=== PATIENT | male | born 1965 | race Caucasian/White ===

== ENCOUNTER 2019-07-04 12:45 | Inpatient (IN) | payer OTHER ==
--- NOTE | 2019-07-04 12:55 | EDM.PDOC ---
ED HPI GENERAL MEDICAL PROBLEM - General Chief Complaint: Lower Extremity Injury/Pain Stated Complaint: FALL Time Seen by Provider: 07/04/19 12:45 Source of Information: Reports: Patient, EMS History Limitations: Reports: No Limitations - History of Present Illness INITIAL COMMENTS - FREE TEXT/NARRATIVE: This 54 year old male fell on ice while working a few minutes ago. He complains of pain in his right lateral mid thigh. He denies any other problems. He has received a total of 100 micrograms of Fentanyl IV. He will be having x-rays of his right hip, right thigh and right tib-fib. Onset: Sudden Duration: Minutes: Location: Reports: Lower Extremity, Right Quality: Reports: Sharp, Throbbing Severity: Moderate Improves with: Reports: Medication Worsens with: Reports: Movement Right femur Pain Score (Numeric/FACES): 7 - Related Data Allergies Allergy/AdvReac Type Severity Reaction Status Date / Time No Known Allergies Allergy Verified 07/04/19 12:47 Home Meds: Home Meds . [No Known Home Meds] 07/04/19 [History] Review of Systems - Review of Systems Review Of Systems: See Below Constitutional: Reports: No Symptoms Eyes: Reports: No Symptoms Ears: Reports: No Symptoms Nose: Reports: No Symptoms Mouth/Throat: Reports: No Symptoms Respiratory: Reports: No Symptoms Cardiovascular: Reports: No Symptoms GI/Abdominal: Reports: No Symptoms Genitourinary: Reports: No Symptoms Musculoskeletal: Reports: Other (pain in right mid thigh.) Skin: Reports: No Symptoms Neurological: Reports: No Symptoms Psychiatric: Reports: No Symptoms ED EXAM, GENERAL - Physical Exam Exam: See Below Exam Limited By: No Limitations General Appearance: Alert, WD/WN, Moderate Distress (complaining of right thigh pain) Eye Exam: Bilateral Eye: EOMI, Normal Inspection, PERRL Ears: Normal External Exam, Normal Canal, Hearing Grossly Normal, Normal TMs Ear Exam: Bilateral Ear: Auricle Normal, Canal Normal, TM normal Nose: Normal Inspection, Normal Mucosa, No Blood Throat/Mouth: Normal Inspection, Normal Lips, Normal Teeth, Normal Gums, Normal Oropharynx, Normal Voice, No Airway Compromise Head: Atraumatic, Normocephalic Neck: Normal Inspection, Supple, Non-Tender, Full Range of Motion Respiratory/Chest: No Respiratory Distress, Lungs Clear, Normal Breath Sounds, No Accessory Muscle Use, Chest Non-Tender Cardiovascular: Normal Peripheral Pulses, Regular Rate, Rhythm, No Edema, No Gallop, No JVD, No Murmur, No Rub Peripheral Pulses: 3+: Posterior Tibial (L), Posterior Tibial (R), Dorsalis Pedis (L), 4+: Femoral (L), Femoral (R), Dorsalis Pedis (R) GI/Abdominal: Normal Bowel Sounds, Soft, Non-Tender, No Organomegaly, No Distention, No Abnormal Bruit, No Mass Back Exam: Normal Inspection, Full Range of Motion, NT Extremities: Other (Swelling with tenderness over lateral aspects of right mid thigh. Increase pain with movement. Neuro/Vasc intact.) Neurological: Alert, Oriented, CN II-XII Intact, Normal Cognition, Normal Gait, Normal Reflexes, No Motor/Sensory Deficits Skin Exam: Warm, Dry, Intact, Normal Color, No Rash Lymphatic: No Adenopathy Course - Vital Signs Text/Narrative:: Dr. Sandoval is here to see the patient at approximately 3:28PM. He will be admitted for open reduction with fixation for the fracture femur. The patient agrees with the plan of management. Last Recorded V/S: Last Vital Signs Temp 97.3 F 07/04/19 12:48 Pulse 40 L 07/04/19 14:54 Resp 18 07/04/19 12:48 BP 99/33 L 07/04/19 14:54 Pulse Ox 99 07/04/19 14:54 - Orders/Labs/Meds Orders: Active Orders 24 hr Category Date Time Status Admission Status [Patient Status] [ADT] Stat ADT 07/04/19 15:35 Active Tibia Fibula Rt [CR] Stat Exams 07/04/19 13:03 Ordered Labs: Laboratory Tests 07/04/19 07/04/19 Range/Units 13:15 13:15 WBC 12.21 H (4.0-11.0) K/uL RBC 4.79 (4.50-5.90) M/uL Hgb 14.9 (13.0-17.0) g/dL Hct 41.2 (38.0-50.0) % MCV 86.0 (80.0-98.0) fL MCH 31.1 (27.0-32.0) pg MCHC 36.2 (31.0-37.0) g/dL RDW Std Deviation 38.8 (28.0-62.0) fl RDW Coeff of Bentley 13 (11.0-15.0) % Plt Count 240 (150-400) K/uL MPV 9.90 (7.40-12.00) fL Neut % (Auto) 85.0 H (48.0-80.0) % Lymph % (Auto) 7.9 L (16.0-40.0) % [place] % (Auto) 6.2 (0.0-15.0) % Eos % (Auto) 0.7 (0.0-7.0) % Baso % (Auto) 0.2 (0.0-1.5) % Neut # (Auto) 10.4 H (1.4-5.7) K/uL Lymph # (Auto) 1.0 (0.6-2.4) K/uL [place] # (Auto) 0.8 (0.0-0.8) K/uL Eos # (Auto) 0.1 (0.0-0.7) K/uL Baso # (Auto) 0.0 (0.0-0.1) K/uL Sodium 142 (136-148) mmol/L Potassium 3.9 (3.5-5.1) mmol/L Chloride 105 (98-107) mmol/L Carbon Dioxide 29.8 (21.0-32.0) mmol/L BUN 14 (7.0-18.0) mg/dL Creatinine 1.0 (0.8-1.3) mg/dL Est Cr Clr Drug Dosing 103.28 mL/min Estimated GFR (MDRD) > 60.0 ml/min Glucose 99 (74-106) mg/dL Calcium 8.8 (8.5-10.1) mg/dL Total Bilirubin 0.6 (0.2-1.0) mg/dL AST 18 (15-37) IU/L ALT 32 (14-63) IU/L Alkaline Phosphatase 84 (46-116) U/L Total Protein 6.8 (6.4-8.2) g/dL Albumin 4.0 (3.4-5.0) g/dL Globulin 2.8 (2.6-4.0) g/dL Albumin/Globulin Ratio 1.4 (0.9-1.6) Meds: Medications Discontinued Medications Generic Name Dose Route Start Last Admin Trade Name Toño PRN Reason Stop Dose Admin Fentanyl 75 mcg 07/04/19 14:12 07/04/19 14:23 Fentanyl IVPUSH 07/04/19 14:13 75 mcg ONETIME ONE Administration Fentanyl Confirm 07/04/19 14:16 07/04/19 14:23 Sublimaze Administered 07/04/19 14:17 Not Given Dose 100 mcg .ROUTE .STK-MED ONE Departure - Departure Time of Disposition: 15:40 Disposition: Admitted As Inpatient 68 Condition: Good Clinical Impression: Fracture of femur, right, closed Qualifiers: Encounter type: initial encounter Femur location: shaft Fracture morphology: oblique Fracture alignment: displaced Qualified Code(s): S72.331A - Displaced oblique fracture of shaft of right femur, initial encounter for closed fracture - Discharge Information *PRESCRIPTION DRUG MONITORING PROGRAM REVIEWED*: Yes *COPY OF PRESCRIPTION DRUG MONITORING REPORT IN PATIENT BONG: Yes Sepsis Event Note - Focused Exam Vital Signs: Vital Signs Temp Pulse Resp BP Pulse Ox 07/04/19 14:54 40 L 99/33 L 99 07/04/19 12:48 97.3 F 54 L 18 112/48 L 97 Date Exam was Performed: 07/04/19 Time Exam was Performed: 15:41 - My Orders Last 24 Hours: My Active Orders 07/04/19 13:03 Tibia Fibula Rt [CR] Stat - Assessment/Plan Last 24 Hours: My Active Orders 07/04/19 13:03 Tibia Fibula Rt [CR] Stat
[2019-07-04 13:45] LABS: BLOOD UREA NITROGEN,BUN 14 mg/dL (7.0-18.0); CARBON DIOXIDE,CO2 29.8 mmol/L (21.0-32.0); CHLORIDE,CL 105 mmol/L (98-107); GLUCOSE RANDOM 99 mg/dL (74-106); POTASSIUM,K 3.9 mmol/L (3.5-5.1); SODIUM,NA 142 mmol/L (136-148)
[2019-07-04] MEDS ORDERED: fentaNYL 50 MCG/ML SDV IVPUSH ONE (14:12)
[2019-07-04] MEDS ORDERED: fentaNYL 100 MCG/2 ML SDV ONE (14:16)
--- NOTE | 2019-07-04 15:03 | CR ---
Right femur: AP and lateral views the right femur were obtained. Fracture is identified within the proximal one third diaphysis of the right femur. Displacement is seen on this study by about 1.6 cm. Fracture line extends to involve the base of the lesser trochanter. Right knee prosthesis is noted which appears normal in alignment. No additional abnormality is seen. Impression: 1. Proximal one third diaphyseal right femur fracture showing mild displacement. Fracture line extends to involve the base of the lesser trochanter. 2. Normal alignment of knee prosthesis. Diagnostic code #5 This report was dictated in [place] Standard Time
--- NOTE | 2019-07-04 15:03 | CR ---
Right hip: Single AP view of the right hip was obtained. Proximal femur fracture as described on femur exam is again noted. Joint space of the right hip is maintained. Other portions of the right hemipelvis appears within normal limits as seen on this exam. Impression: 1. Proximal right femur fracture as previously described. 2. AP right hip exam is otherwise unremarkable. Diagnostic code #3 This report was dictated in [place] Standard Time
[2019-07-04] MEDS ORDERED: Lidocaine 2% 5 ML SDV ONE (16:03)
[2019-07-04] MEDS ORDERED: Propofol 200 MG/20 ML SDV ONE (16:03)
[2019-07-04] MEDS ORDERED: fentaNYL 250 MCG/5 ML SDV ONE ×3 (16:03→18:45)
[2019-07-04] MEDS ORDERED: Rocuronium 100 MG/10 ML Syringe ONE (16:03)
[2019-07-04] MEDS ORDERED: Midazolam 1 MG/ML 2 ML SDV ONE (16:03)
[2019-07-04] MEDS ORDERED: Glycopyrrolate 0.2 MG/ML SDV ONE (16:03)
[2019-07-04] MEDS ORDERED: Ondansetron 4 MG/2 ML SDV ONE (16:03)
[2019-07-04] MEDS ORDERED: Ketorolac 30 MG/ML SDV ONE (16:03)
--- NOTE | 2019-07-04 16:10 | PCM.PREANE ---
Preanesthetic Assessment - Anesthesia/Transfusion/Family Hx Anesthesia History: Prior Anesthesia Without Reaction Family History of Anesthesia Reaction: No - Physical Assessment NPO Status Date: 07/04/19 NPO Status Time: 08:00 Vital Signs: Last Vital Signs Temp 36.3 C 07/04/19 12:48 Pulse 54 L 07/04/19 15:55 Resp 16 07/04/19 15:55 BP 96/40 L 07/04/19 15:55 Pulse Ox 99 07/04/19 15:55 Height: 1.91 m Weight: 90.718 kg ASA Class: 1E - Lab Values: Laboratory Last Values WBC 12.21 K/uL (4.0-11.0) H 07/04/19 13:15 RBC 4.79 M/uL (4.50-5.90) 07/04/19 13:15 Hgb 14.9 g/dL (13.0-17.0) 07/04/19 13:15 Hct 41.2 % (38.0-50.0) 07/04/19 13:15 MCV 86.0 fL (80.0-98.0) 07/04/19 13:15 MCH 31.1 pg (27.0-32.0) 07/04/19 13:15 MCHC 36.2 g/dL (31.0-37.0) 07/04/19 13:15 RDW Std Deviation 38.8 fl (28.0-62.0) 07/04/19 13:15 RDW Coeff of Bentley 13 % (11.0-15.0) 07/04/19 13:15 Plt Count 240 K/uL (150-400) 07/04/19 13:15 MPV 9.90 fL (7.40-12.00) 07/04/19 13:15 Neut % (Auto) 85.0 % (48.0-80.0) H 07/04/19 13:15 Lymph % (Auto) 7.9 % (16.0-40.0) L 07/04/19 13:15 [place] % (Auto) 6.2 % (0.0-15.0) 07/04/19 13:15 Eos % (Auto) 0.7 % (0.0-7.0) 07/04/19 13:15 Baso % (Auto) 0.2 % (0.0-1.5) 07/04/19 13:15 Neut # (Auto) 10.4 K/uL (1.4-5.7) H 07/04/19 13:15 Lymph # (Auto) 1.0 K/uL (0.6-2.4) 07/04/19 13:15 [place] # (Auto) 0.8 K/uL (0.0-0.8) 07/04/19 13:15 Eos # (Auto) 0.1 K/uL (0.0-0.7) 07/04/19 13:15 Baso # (Auto) 0.0 K/uL (0.0-0.1) 07/04/19 13:15 Sodium 142 mmol/L (136-148) 07/04/19 13:15 Potassium 3.9 mmol/L (3.5-5.1) 07/04/19 13:15 Chloride 105 mmol/L (98-107) 07/04/19 13:15 Carbon Dioxide 29.8 mmol/L (21.0-32.0) 07/04/19 13:15 BUN 14 mg/dL (7.0-18.0) 07/04/19 13:15 Creatinine 1.0 mg/dL (0.8-1.3) 07/04/19 13:15 Est Cr Clr Drug Dosing 103.28 mL/min 07/04/19 13:15 Estimated GFR (MDRD) > 60.0 ml/min 07/04/19 13:15 Glucose 99 mg/dL (74-106) 07/04/19 13:15 Calcium 8.8 mg/dL (8.5-10.1) 07/04/19 13:15 Total Bilirubin 0.6 mg/dL (0.2-1.0) 07/04/19 13:15 AST 18 IU/L (15-37) 07/04/19 13:15 ALT 32 IU/L (14-63) 07/04/19 13:15 Alkaline Phosphatase 84 U/L (46-116) 07/04/19 13:15 Total Protein 6.8 g/dL (6.4-8.2) 07/04/19 13:15 Albumin 4.0 g/dL (3.4-5.0) 07/04/19 13:15 Globulin 2.8 g/dL (2.6-4.0) 07/04/19 13:15 Albumin/Globulin Ratio 1.4 (0.9-1.6) 07/04/19 13:15 - Allergies Allergies/Adverse Reactions: Allergies Allergy/AdvReac Type Severity Reaction Status Date / Time No Known Allergies Allergy Verified 07/04/19 12:47 - Acknowledgements Anesthesia Type Planned: General Anesthesia Pt an Appropriate Candidate for the Planned Anesthesia: Yes Alternatives and Risks of Anesthesia Discussed w Pt/Guardian: Yes Pt/Guardian Understands and Agrees with Anesthesia Plan: Yes PreAnesthesia Questionnaire - Past Health History Medical/Surgical History: Denies Medical/Surgical History - Infectious Disease History Infectious Disease History: Reports: None - Past Surgical History Musculoskeletal Surgical History: Reports: Knee Replacement - SUBSTANCE USE Tobacco Use Within Last Twelve Months: Snuff/Dip Recreational Drug Use History: No - HOME MEDS Home Medications: Home Meds . [No Known Home Meds] 07/04/19 [History] - CURRENT (IN HOUSE) MEDS Current Meds: Current Medications Discontinued Medications Fentanyl (Fentanyl) 75 mcg IVPUSH ONETIME ONE Stop: 07/04/19 14:13 Last Admin: 07/04/19 14:23 Dose: 75 mcg Fentanyl (Sublimaze) Confirm Administered Dose 100 mcg .ROUTE .STK-MED ONE Stop: 07/04/19 14:17 Last Admin: 07/04/19 14:23 Dose: Not Given Fentanyl (Sublimaze) Confirm Administered Dose 250 mcg .ROUTE .STK-MED ONE Stop: 07/04/19 16:04 Glycopyrrolate (Robinul) Confirm Administered Dose 0.2 mg .ROUTE .STK-MED ONE Stop: 07/04/19 16:04 Ketorolac Tromethamine (Toradol) Confirm Administered Dose 30 mg .ROUTE .STK- MED ONE Stop: 07/04/19 16:04 Lidocaine (Xylocaine-Mpf 2%) Confirm Administered Dose 5 ml .ROUTE .STK-MED ONE Stop: 07/04/19 16:04 Midazolam HCl (Versed 1 Mg/Ml) Confirm Administered Dose 2 mg .ROUTE .STK-MED ONE Stop: 07/04/19 16:04 Ondansetron HCl (Zofran) Confirm Administered Dose 4 mg .ROUTE .STK-MED ONE Stop: 07/04/19 16:04 Propofol (Diprivan 20 Ml) Confirm Administered Dose 200 mg .ROUTE .STK-MED ONE Stop: 07/04/19 16:04 Rocuronium [place] (Zemuron) Confirm Administered Dose 100 mg .ROUTE .STK-MED ONE Stop: 07/04/19 16:04
[2019-07-04] MEDS ORDERED: Sugammadex Sodium 200 MG/2 ML VIAL ONE (16:12)
[2019-07-04] MEDS ORDERED: ceFAZolin 1 GM Vial ONE (16:19)
[2019-07-04] MEDS ORDERED: Sodium Chloride 0.9% 20 ML ONE (16:19)
[2019-07-04] MEDS ORDERED: Phenylephrine/Normal Saline 100 MCG/ML 10 ML Syringe ONE (17:45)
[2019-07-04] MEDS ORDERED: Phenylephrine 1% 10 MG/ML SDV ONE (18:34)
[2019-07-04] MEDS ORDERED: Bupivacaine 0.25% 10 ML SDV ONE (20:10)
[2019-07-04] MEDS ORDERED: diphenhydrAMINE 50 MG/ML SDV IVPUSH PRN (20:33)
[2019-07-04] MEDS ORDERED: Ondansetron 4 MG/2 ML SDV IVPUSH PRN (20:33)
[2019-07-04] MEDS ORDERED: HYDROmorphone 2 MG/ML Syringe IVPUSH PRN (20:39)
--- NOTE | 2019-07-04 20:39 | PCM.OPNOTE ---
- General Post-Op/Procedure Note Date of Surgery/Procedure: 07/04/19 Operative Procedure(s): cephallomedullary nail right femur Pre Op Diagnosis: right subtroch fx closed Post-Op Diagnosis: Same Anesthesia Technique: General ET Tube Primary Surgeon: Bull Sandoval Anesthesia Provider: Rd Putnam EBL in mLs: 2,200 Complications: None Condition: Stable
[2019-07-04] MEDS ORDERED: HYDROmorphone 2 MG/ML Syringe IVPUSH ONE (20:40)
[2019-07-04] MEDS: fentaNYL 100 MCG/2 ML SDV IVPUSH PRN ×2 (20:45→20:52)
--- NOTE | 2019-07-04 21:22 | PCM.POSTAN ---
POST ANESTHESIA ASSESSMENT - VITAL SIGNS Vital Signs: Last Vital Signs Temp 36.3 C 07/04/19 12:48 Pulse 54 L 07/04/19 15:55 Resp 16 07/04/19 15:55 BP 96/40 L 07/04/19 15:55 Pulse Ox 99 07/04/19 15:55
--- NOTE | 2019-07-04 21:25 | PCM.POSTAN ---
POST ANESTHESIA ASSESSMENT - MENTAL STATUS Mental Status: Alert - VITAL SIGNS Vital Signs: Last Vital Signs Temp 36.3 C 07/04/19 12:48 Pulse 54 L 07/04/19 15:55 Resp 16 07/04/19 15:55 BP 96/40 L 07/04/19 15:55 Pulse Ox 99 07/04/19 15:55 - RESPIRATORY Respiratory Status: Respiratory Rate WNL - CARDIOVASCULAR CV Status: Pulse Rate WNL - GASTROINTESTINAL GI Status: No Symptoms - POST OP HYDRATION Hydration Status: Adequate & Stable
[2019-07-04] MEDS: Lactated Ringers 1,000 ML IV SCH (22:05)
--- NOTE | 2019-07-04 22:13 | OR ---
SURGEON: Bull Sandoval DATE OF PROCEDURE: 07/04/2019 PREOPERATIVE DIAGNOSIS: Right subtrochanteric fracture of the femur, closed. POSTOPERATIVE DIAGNOSIS: Right subtrochanteric fracture of the femur, closed. PROCEDURE: Right femur cephalomedullary nail. PRIMARY SURGEON: Bull Sandoval DO. ANESTHESIA: General endotracheal intubation. PYTHON JAVA DEVELOPER: Rd Polanco CRNA. FLUID: Lactated Ringer's solution. ESTIMATED BLOOD LOSS: 2200 mL. COMPLICATIONS: None. SPECIMENS: None. DISCHARGE DISPOSITION: Stable to PACU. INSTRUMENTATION: [place] 10 x 400 trochanteric nail with 100 mm x 10 mm nail into the femoral head and 5 x 50 mm distal locking screw. HISTORY AND INDICATIONS FOR THE PROCEDURE: The patient came in through the ER. He is an multiple coil winder. He slipped on the ice, resulting in a spiral fracture of the subtrochanteric region of the right femur. This lesser trochanter was off. Preoperative imaging confirmed the above-mentioned diagnosis. Risks and goals of the procedure were explained to the patient. Informed consent was obtained. DETAILS OF PROCEDURE: The patient was seen preoperatively by myself and the Anesthesia staff in the preoperative holding area where the operative site was marked. He was brought to the operative suite by the Anesthesia staff where general anesthesia was administered. He was placed onto a fracture table. All extremities were found to be well padded. The left lower extremity was placed into a hip sutton. The right lower extremity was placed into a traction boot. The right lower extremity was then prepped and draped in a sterile manner. Time-out was called identifying the correct patient, correct procedure, the correct side and antibiotics had been given within appropriate period of time. A sterilely draped fluoroscopy unit was used for the procedure. An AP view was used to localize the trochanter. An incision was made just proximal to the greater trochanter. An awl was inserted into the greater trochanter down to the level of lesser trochanter. I then inserted my guidewire. As is typical with subtrochanteric fractures, the proximal portion was severely flexed and the distal portion was extended with no apposition. I then made an incision over the fracture site and tried to reduce this. I then tried to clamp this together, but was unable to pass my ball-tip wire. I spent a great deal of time trying to reduce this which accounts for the 2200 mL of blood loss. This took certainly an hour and a half of trying with reduction and traction and internal and external rotation of the leg using the reduction bala intramedullary, and I was finally with a great deal of external rotation letting off some of the traction pushing down the proximal thigh and then pushing it inward as well as cabling part of the fracture to get the wire to go down. What complicated the reduction was that there was another 1 to 2 pieces of bone fragment preventing this from keying in and the spiral portion distally was on the medial aspect of the femur preventing being able to feel like keyed in because of the gluteal attachments to the femur of that area. After passing the wire, things got relatively much easier. I then measured 400 and then we sequentially reamed from 9 to 12 and placed the nail down and then used AP and lateral fluoro as a guide to get a tip-apex distance for the screw of less than 2.5 cm. I then locked this in place and then applied more internal rotation which would be appropriate and let off a little bit more traction and did this under direct fluoro in order to get the leg length as close as possible to the contralateral side into its [place] length. I then used the perfect [place] technique to place my 5 x 50 mm screw. I then took AP and lateral fluoroscopy shots of the proximal and distal portion of the nail. We then copiously irrigated with saline. I did use pulse lavage, Betadine-infused irrigation throughout the case and then at the end did use Betadine-infused irrigation. The long incision over the fracture site was closed primarily at first muscularly with #1 Stratafix. I then used 3 interrupted Ethibond which were #5s to bring my IT band back together and then closed the IT band with 0 Stratafix. I then closed the subcutaneous layer with 0 Stratafix. My nail insertion site was closed with 0 Stratafix . I then closed all of my incisions with lisa and then covered them with Betadine-soaked Adaptic, fluffs, ABDs, and Medipore tape. The patient was then allowed to awaken from general anesthesia and transferred to his bed in stable condition. Distal pulses were 2/4 in the posterior tibialis and dorsalis pedis. Leg lengths were equal. Because of the blood loss, we started a unit of transfusion of red blood cells. He was also given albumin and other fluids during the case, and he will be transferred to the ICU after PACU. [id number] / MODL /[id number]
[2019-07-04] MEDS: Docusate Sodium 100 MG Cap PO SCH (22:14)
[2019-07-04] MEDS: Acetaminophen/oxyCODONE 325-5 MG Tab PO PRN (22:14)
[2019-07-05] MEDS: ceFAZolin 2 GM in Premix Bag 1 BAG IV SCH ×2 (00:48→07:58)
[2019-07-05] MEDS: Acetaminophen/oxyCODONE 325-5 MG Tab PO PRN ×5 (02:23→21:40)
[2019-07-05] MEDS ORDERED: Lactated Ringers 2,000 ML IV SCH (05:30)
[2019-07-05 05:58] LABS: BLOOD UREA NITROGEN,BUN 17 mg/dL (7.0-18.0); CARBON DIOXIDE,CO2 27.7 mmol/L (21.0-32.0); CHLORIDE,CL 106 mmol/L (98-107); GLUCOSE RANDOM 120 mg/dL (74-106); POTASSIUM,K 4.1 mmol/L (3.5-5.1); SODIUM,NA 141 mmol/L (136-148)
--- NOTE | 2019-07-05 08:20 | PCM48HPAN ---
Post Anesthesia Note - EVALUATION WITHIN 48HRS OF ANESTHETIC Vital Signs in Normal Range: Yes Patient Participated in Evaluation: Yes Respiratory Function Stable: Yes Airway Patent: Yes Cardiovascular Function Stable: Yes Hydration Status Stable: Yes Pain Control Satisfactory: Yes Nausea and Vomiting Control Satisfactory: Yes Mental Status Recovered: Yes Vital Signs: Last Vital Signs Temp 37.1 C 07/05/19 07:28 Pulse 88 07/05/19 07:28 Resp 14 07/05/19 07:28 BP 101/47 L 07/05/19 07:28 Pulse Ox 98 07/05/19 07:28
--- NOTE | 2019-07-05 09:31 | PN ---
THC Physician - Brief Progress [id number]/12/2020 09:19[facility] Camilo Sams, [place] - MWN (BREANN) - MWN ICUROLAND TIMIDate of Service 07/05/2019 09:19HPI/Events of N ote eICU Admission [id number] M admitted to ICU post-surgery with Hgb drop 14.9 -> 9.4. Patient had gr ound level fall with right hip fracture. He had significant blood loss during right hip nailing with hypotension. Given 3.6L LR, 2 units prbcs, albumin. Discussed with bedside nurse and reviewed note s in the EMR. Seen on camera, comfortable.eICU Recommendations:1. Check serial H/H, maintain 2 larg e bore peripheral IV at all times.2. Suggest hold Celebrex with bleeding.3. Rule out ACS if remains hypotensive.4. SCDs for DVT prophylaxis.5. Pain control with Dilaudid and Percocet PRN.6. Continu e IVF. Thank you for allowing us to particpate in the care of your patient.Interventions Intermediat e-Bleeding - evaluation and treatment with blood products, Communication with other healthcare provid ers and/or family, Diagnostic test evaluation, Medication change / dose adjustmentElectronically Sign ed by: CHARLY VALLE) on 07/05/2019 09:30
[2019-07-05] MEDS ORDERED: Lactated Ringers 1,000 ML IV ONE (09:56)
[2019-07-05] MEDS: Aspirin 325 MG Tab PO SCH (10:00)
[2019-07-05] MEDS: Celecoxib 100 MG Cap PO SCH (10:00)
[2019-07-05] MEDS: Docusate Sodium 100 MG Cap PO SCH ×2 (10:06→21:13)
--- NOTE | 2019-07-05 10:43 | PCM.CONS ---
H&P History of Present Illness - General Date of Service: 07/05/19 Admit Problem/Dx: Admission Diagnosis/Problem Admission Diagnosis/Problem Fracture of femur - History of Present Illness Initial Comments - Free Text/Narative: Patient is a 54 y/o M with PMH of cardiac murmur, electrocution, who underwent surgery for right subtrochanteric fracture of femur yesterday (07/04/2019). Patient had estimated blood loss of 2200 ml in OR. Was admitted to ICU for close monitoring. I was consulted to help manage the acute blood loss anemia. Patient seen and examined by me at bedside this AM. Looks comfortable. BP little soft with MAPs in 60-65 range. No active bleeding, dressing has been changed once overnight. Overnight i ordered another unit of PRBC and 1 FFP. in Total he has received 2 PRBC and 1 FFP so far and 5-6 ltrs of LR fluid bolus. Pain well tolerated. Eating and drinking ok. Good urine output so far. Quality: Reports: Throbbing Severity: Moderate Improves with: Reports: Cold Therapy Worsens with: Reports: Movement Right femur Pain Score (Numeric/FACES): 5 - Related Data Allergies/Adverse Reactions: Allergies Allergy/AdvReac Type Severity Reaction Status Date / Time No Known Allergies Allergy Verified 07/06/19 18:06 Home Medications: Home Meds . [No Known Home Meds] 07/04/19 [History] Past Medical History - Past Health History Medical/Surgical History: Denies Medical/Surgical History Cardiovascular History: Reports: Heart Murmur - Infectious Disease History Infectious Disease History: Reports: None - Past Surgical History Cardiovascular Surgical History: Reports: None Musculoskeletal Surgical History: Reports: Knee Replacement Social & Family History - Family History Family Medical History: Noncontributory - Tobacco Use Smoking Status *Q: Never Smoker - Caffeine Use Caffeine Use: Reports: Coffee, Energy Drinks, Soda - Recreational Drug Use Recreational Drug Use: No H&P Review of Systems - Review of Systems: Review Of Systems: See Below General: Denies: Fever, Chills HEENT: Denies: Dysphasia, Ear Pain Pulmonary: Denies: Shortness of Breath, Wheezing, Pleuritic Chest Pain Cardiovascular: Denies: Chest Pain, Palpitations, Dyspnea on Exertion Gastrointestinal: Denies: Abdominal Pain, Anorexia, Black Stool, Decreased Appetite, Hematochezia, Nausea Genitourinary: Denies: Dysuria, Frequency, Burning Musculoskeletal: Reports: Leg Pain. Denies: Neck Pain, Shoulder Pain Skin: Denies: Cyanosis, Jaundice, Mottled Psychiatric: Denies: Confusion, Depression, Mood Lability Neurological: Denies: Confusion, Dizziness, Headache Exam - Exam Exam: See Below - Vital Signs Vital Signs: Last Vital Signs Temp 36.8 C 07/05/19 10:31 Pulse 87 07/05/19 10:31 Resp 17 07/05/19 10:31 BP 91/44 L 07/05/19 10:31 Pulse Ox 95 07/05/19 10:31 Weight: 90.12 kg - Exam General: Alert, Oriented, Cooperative Neck: Supple, Trachea Midline Lungs: Clear to Auscultation, Normal Respiratory Effort Cardiovascular: Regular Rate, Regular Rhythm, Systolic Murmur Peripheral Pulses: 3+: Dorsalis Pedis (L), Dorsalis Pedis (R) Skin: Warm, Intact - Patient Data Lab Results Last 24 hrs: Laboratory Results - last 24 hr 07/04/19 07/04/19 07/04/19 Range/Units 13:15 13:15 19:35 WBC 12.21 H (4.0-11.0) K/uL RBC 4.79 (4.50-5.90) M/uL Hgb 14.9 (13.0-17.0) g/dL Hct 41.2 (38.0-50.0) % MCV 86.0 (80.0-98.0) fL MCH 31.1 (27.0-32.0) pg MCHC 36.2 (31.0-37.0) g/dL RDW Std Deviation 38.8 (28.0-62.0) fl RDW Coeff of [place] 13 (11.0-15.0) % Plt Count 240 (150-400) K/uL MPV 9.90 (7.40-12.00) fL Neut % (Auto) 85.0 H (48.0-80.0) % Lymph % (Auto) 7.9 L (16.0-40.0) % [place] % (Auto) 6.2 (0.0-15.0) % Eos % (Auto) 0.7 (0.0-7.0) % Baso % (Auto) 0.2 (0.0-1.5) % Neut # (Auto) 10.4 H (1.4-5.7) K/uL Lymph # (Auto) 1.0 (0.6-2.4) K/uL [place] # (Auto) 0.8 (0.0-0.8) K/uL Eos # (Auto) 0.1 (0.0-0.7) K/uL Baso # (Auto) 0.0 (0.0-0.1) K/uL INR APTT (18.6-31.3) SEC Sodium 142 (136-148) mmol/L Potassium 3.9 (3.5-5.1) mmol/L Chloride 105 (98-107) mmol/L Carbon Dioxide 29.8 (21.0-32.0) mmol/L BUN 14 (7.0-18.0) mg/dL Creatinine 1.0 (0.8-1.3) mg/dL Est Cr Clr Drug Dosing 103.28 mL/min Estimated GFR (MDRD) > 60.0 ml/min Glucose 99 (74-106) mg/dL Calcium 8.8 (8.5-10.1) mg/dL Total Bilirubin 0.6 (0.2-1.0) mg/dL AST 18 (15-37) IU/L ALT 32 (14-63) IU/L Alkaline Phosphatase 84 (46-116) U/L Total Protein 6.8 (6.4-8.2) g/dL Albumin 4.0 (3.4-5.0) g/dL Globulin 2.8 (2.6-4.0) g/dL Albumin/Globulin Ratio 1.4 (0.9-1.6) Blood Type O NEGATIVE Antibody Screen NEGATIVE Crossmatch See Detail 07/05/19 07/05/19 07/05/19 Range/Units 05:35 05:35 06:37 WBC (4.0-11.0) K/uL RBC (4.50-5.90) M/uL Hgb 9.4 L (13.0-17.0) g/dL Hct 26.4 L (38.0-50.0) % MCV (80.0-98.0) fL MCH (27.0-32.0) pg MCHC (31.0-37.0) g/dL RDW Std Deviation (28.0-62.0) fl RDW Coeff of [place] (11.0-15.0) % Plt Count (150-400) K/uL MPV (7.40-12.00) fL Neut % (Auto) (48.0-80.0) % Lymph % (Auto) (16.0-40.0) % [place] % (Auto) (0.0-15.0) % Eos % (Auto) (0.0-7.0) % Baso % (Auto) (0.0-1.5) % Neut # (Auto) (1.4-5.7) K/uL Lymph # (Auto) (0.6-2.4) K/uL [place] # (Auto) (0.0-0.8) K/uL Eos # (Auto) (0.0-0.7) K/uL Baso # (Auto) (0.0-0.1) K/uL INR 1.16 APTT 28.6 (18.6-31.3) SEC Sodium 141 (136-148) mmol/L Potassium 4.1 (3.5-5.1) mmol/L Chloride 106 (98-107) mmol/L Carbon Dioxide 27.7 (21.0-32.0) mmol/L BUN 17 (7.0-18.0) mg/dL Creatinine 1.1 (0.8-1.3) mg/dL Est Cr Clr Drug Dosing 94.39 mL/min Estimated GFR (MDRD) > 60.0 ml/min Glucose 120 H (74-106) mg/dL Calcium 7.2 L (8.5-10.1) mg/dL Total Bilirubin (0.2-1.0) mg/dL AST (15-37) IU/L ALT (14-63) IU/L Alkaline Phosphatase (46-116) U/L Total Protein (6.4-8.2) g/dL Albumin (3.4-5.0) g/dL Globulin (2.6-4.0) g/dL Albumin/Globulin Ratio (0.9-1.6) Blood Type Antibody Screen Crossmatch Result Diagrams: 07/06/19 05:35 07/05/19 05:35 Sepsis Event Note - Evaluation Sepsis Screening Result: No Definite Risk - Focused Exam Vital Signs: Vital Signs Temp Temp Pulse Resp BP BP Pulse Ox 07/05/19 10:31 36.8 C 87 17 91/44 L 95 07/05/19 09:52 37.1 C 85 14 96/51 L 98 07/05/19 09:47 36.9 C 85 12 89/56 L 100 07/05/19 09:32 37.4 C 37.4 C 84 14 92/47 L 97 07/05/19 08:55 37.2 C 85 16 98/47 L 95 07/05/19 08:26 37.0 C 90 13 90/49 L 100 07/05/19 07:25 37.1 C 88 14 101/47 L 98 07/05/19 06:53 37.2 C 15 94/45 L 98 07/05/19 06:38 37.1 C 17 105/46 L 98 07/05/19 05:00 16 85/45 L 94 L 07/05/19 04:00 36.8 C 14 97/39 L 94 L 07/05/19 03:00 16 87/48 L 95 07/05/19 02:00 15 96/48 L 99 07/05/19 01:00 12 89/52 L 100 07/05/19 00:00 36.7 C 14 88/50 L 98 07/04/19 23:30 14 94/51 L 96 07/04/19 23:00 14 99/56 L 96 07/04/19 22:45 12 108/56 L 94 L Date Exam was Performed: 07/06/19 Time Exam was Performed: 21:06 Consult PN Assessment/Plan POD#: 1 (1) Blood loss, postoperative SNOMED Code(s): 026719583 Code(s): KZS2807 - Current Visit: Yes (2) Displaced subtrochanteric fracture of right femur, initial encounter for closed fracture SNOMED Code(s): 971911984, 767673987, 874023467 Code(s): S72.21XA - DISPLACED SUBTROCHANTERIC FRACTURE OF RIGHT FEMUR, INIT Current Visit: Yes Onset Date: ~07/04/19 (3) Benign cardiac murmur SNOMED Code(s): 04429673 Code(s): R01.0 - BENIGN AND INNOCENT CARDIAC MURMURS Current Visit: Yes Problem List Initiated/Reviewed/Updated: Yes My Orders Last 24 Hours: My Active Orders 07/05/19 05:30 Lactated Ringers [Ringers, Lactated] 2,000 ml IV BOLUS 07/05/19 06:05 FRESH FROZEN PLASMA [BBK] Routine 07/05/19 09:56 Lactated Ringers [Ringers, Lactated] 1,000 ml IV ONETIME Plan: A/P: 1)POD 1 for subtrochanteric femur # 2)Blood loss anemia 2)Hypotension Cont IV fluid resuscitation s/p 2PRBC, 1 FFP transfusion BP soft but acceptable for now, patient states his BP is low at baseline with SBP in low 100s. Recheck HnH this afternoon cont pain control per ortho hold ASA for today due to concern of bleeding Cont close monitoring in ICU monitor and replete electrolytes daily Rest of the care per primary team Requesting Provider: Dr Sandoval Date Consult Requested: 07/04/19 Reason for Consult: blood loss anemia Patient History Reviewed: Yes Admission H&P Reviewed: Yes Notified Requestor: Yes
[2019-07-05] MEDS: Lactated Ringers 1,000 ML IV SCH ×2 (11:14→21:05)
--- NOTE | 2019-07-05 11:50 | PCM.OPNOTE ---
- General Post-Op/Procedure Note Date of Surgery/Procedure: 07/05/19 Operative Procedure(s): right femur cephallomedullary nail Pre Op Diagnosis: right femur 3 part subtrochanteric fracture, closed Post-Op Diagnosis: Same Anesthesia Technique: General ET Tube Primary Surgeon: Bull Sandoval Anesthesia Provider: Rd Putnam EBL in mLs: 2,200 Complications: None Condition: Stable Free Text/Narrative:: Intake & Output 07/04/19 07/05/19 07/05/19 22:59 06:59 14:59 Intake Total 3600 513 3332 Output Total 300 Balance 3600 213 3332
--- NOTE | 2019-07-05 11:54 | PCM.PN ---
- General Info Date of Service: 07/05/19 Admission Dx/Problem (Free Text): Admission Diagnosis/Problem Admission Diagnosis/Problem Fracture of femur, subtrochanteric, closed Functional Status: Reports: Pain Controlled, Tolerating Diet, Urinating - Review of Systems General: Reports: No Symptoms HEENT: Reports: No Symptoms Pulmonary: Reports: No Symptoms Cardiovascular: Reports: No Symptoms Gastrointestinal: Reports: No Symptoms Genitourinary: Reports: No Symptoms Musculoskeletal: Reports: Leg Pain, Joint Pain, Joint Swelling Skin: Reports: No Symptoms Neurological: Reports: No Symptoms Psychiatric: Reports: No Symptoms - Patient Data Vitals - Most Recent: Last Vital Signs Temp 37.1 C 07/05/19 11:28 Pulse 91 07/05/19 11:28 Resp 12 07/05/19 11:28 BP 109/52 L 07/05/19 11:28 Pulse Ox 99 07/05/19 11:28 Weight - Most Recent: 90.12 kg I&O - Last 24 Hours: Intake & Output 07/04/19 07/05/19 07/05/19 22:59 06:59 14:59 Intake Total 3600 513 3332 Output Total 300 Balance 3600 213 3332 Lab Results Last 24 Hours: Laboratory Results - last 24 hr 07/04/19 07/04/19 07/04/19 Range/Units 13:15 13:15 19:35 WBC 12.21 H (4.0-11.0) K/uL RBC 4.79 (4.50-5.90) M/uL Hgb 14.9 (13.0-17.0) g/dL Hct 41.2 (38.0-50.0) % MCV 86.0 (80.0-98.0) fL MCH 31.1 (27.0-32.0) pg MCHC 36.2 (31.0-37.0) g/dL RDW Std Deviation 38.8 (28.0-62.0) fl RDW Coeff of [place] 13 (11.0-15.0) % Plt Count 240 (150-400) K/uL MPV 9.90 (7.40-12.00) fL Neut % (Auto) 85.0 H (48.0-80.0) % Lymph % (Auto) 7.9 L (16.0-40.0) % [place] % (Auto) 6.2 (0.0-15.0) % Eos % (Auto) 0.7 (0.0-7.0) % Baso % (Auto) 0.2 (0.0-1.5) % Neut # (Auto) 10.4 H (1.4-5.7) K/uL Lymph # (Auto) 1.0 (0.6-2.4) K/uL [place] # (Auto) 0.8 (0.0-0.8) K/uL Eos # (Auto) 0.1 (0.0-0.7) K/uL Baso # (Auto) 0.0 (0.0-0.1) K/uL INR APTT (18.6-31.3) SEC Sodium 142 (136-148) mmol/L Potassium 3.9 (3.5-5.1) mmol/L Chloride 105 (98-107) mmol/L Carbon Dioxide 29.8 (21.0-32.0) mmol/L BUN 14 (7.0-18.0) mg/dL Creatinine 1.0 (0.8-1.3) mg/dL Est Cr Clr Drug Dosing 103.28 mL/min Estimated GFR (MDRD) > 60.0 ml/min Glucose 99 (74-106) mg/dL Calcium 8.8 (8.5-10.1) mg/dL Total Bilirubin 0.6 (0.2-1.0) mg/dL AST 18 (15-37) IU/L ALT 32 (14-63) IU/L Alkaline Phosphatase 84 (46-116) U/L Total Protein 6.8 (6.4-8.2) g/dL Albumin 4.0 (3.4-5.0) g/dL Globulin 2.8 (2.6-4.0) g/dL Albumin/Globulin Ratio 1.4 (0.9-1.6) Blood Type O NEGATIVE Antibody Screen NEGATIVE Crossmatch See Detail 07/05/19 07/05/19 07/05/19 Range/Units 05:35 05:35 06:37 WBC (4.0-11.0) K/uL RBC (4.50-5.90) M/uL Hgb 9.4 L (13.0-17.0) g/dL Hct 26.4 L (38.0-50.0) % MCV (80.0-98.0) fL MCH (27.0-32.0) pg MCHC (31.0-37.0) g/dL RDW Std Deviation (28.0-62.0) fl RDW Coeff of [place] (11.0-15.0) % Plt Count (150-400) K/uL MPV (7.40-12.00) fL Neut % (Auto) (48.0-80.0) % Lymph % (Auto) (16.0-40.0) % [place] % (Auto) (0.0-15.0) % Eos % (Auto) (0.0-7.0) % Baso % (Auto) (0.0-1.5) % Neut # (Auto) (1.4-5.7) K/uL Lymph # (Auto) (0.6-2.4) K/uL [place] # (Auto) (0.0-0.8) K/uL Eos # (Auto) (0.0-0.7) K/uL Baso # (Auto) (0.0-0.1) K/uL INR 1.16 APTT 28.6 (18.6-31.3) SEC Sodium 141 (136-148) mmol/L Potassium 4.1 (3.5-5.1) mmol/L Chloride 106 (98-107) mmol/L Carbon Dioxide 27.7 (21.0-32.0) mmol/L BUN 17 (7.0-18.0) mg/dL Creatinine 1.1 (0.8-1.3) mg/dL Est Cr Clr Drug Dosing 94.39 mL/min Estimated GFR (MDRD) > 60.0 ml/min Glucose 120 H (74-106) mg/dL Calcium 7.2 L (8.5-10.1) mg/dL Total Bilirubin (0.2-1.0) mg/dL AST (15-37) IU/L ALT (14-63) IU/L Alkaline Phosphatase (46-116) U/L Total Protein (6.4-8.2) g/dL Albumin (3.4-5.0) g/dL Globulin (2.6-4.0) g/dL Albumin/Globulin Ratio (0.9-1.6) Blood Type Antibody Screen Crossmatch Med Orders - Current: Current Medications Aspirin (Aspirin) 325 mg PO DAILY [facility] Last Admin: 07/05/19 10:00 Dose: Not Given Celecoxib (Celebrex) 100 mg PO BID [facility] Last Admin: 07/05/19 10:00 Dose: Not Given Diphenhydramine HCl (Benadryl) 25 mg IVPUSH Q4H PRN PRN Reason: Itching Docusate Sodium (Colace) 100 mg PO BID [facility] Last Admin: 07/05/19 10:06 Dose: 100 mg Hydromorphone HCl (Dilaudid) 2 mg IVPUSH Q2H PRN PRN Reason: Pain Lactated Ringer's (Ringers, Lactated) 1,000 mls @ 100 mls/hr IV ASDIRECTED [facility] Last Admin: 07/05/19 11:14 Dose: 100 mls/hr Lactated Ringer's (Ringers, Lactated) 2,000 mls @ 999 mls/hr IV BOLUS [facility] Last Admin: 07/05/19 05:59 Dose: 999 mls/hr Ondansetron HCl (Zofran) 4 mg IVPUSH Q6H PRN PRN Reason: Nausea/Vomiting Oxycodone/Acetaminophen (Percocet 325-5 Mg) 1 - 2 tab PO Q4H PRN PRN Reason: Pain Last Admin: 07/05/19 11:24 Dose: 2 tab Discontinued Medications Bupivacaine HCl (Sensorcaine-Mpf 0.25%) Confirm Administered Dose 30 ml .ROUTE .STK-MED ONE Stop: 07/04/19 20:11 Cefazolin Sodium (Ancef) Confirm Administered Dose 2 gm .ROUTE .STK-MED ONE Stop: 07/04/19 16:20 Fentanyl (Fentanyl) 75 mcg IVPUSH ONETIME ONE Stop: 07/04/19 14:13 Last Admin: 07/04/19 14:23 Dose: 75 mcg Fentanyl (Sublimaze) Confirm Administered Dose 100 mcg .ROUTE .STK-MED ONE Stop: 07/04/19 14:17 Last Admin: 07/04/19 14:23 Dose: Not Given Fentanyl (Sublimaze) Confirm Administered Dose 250 mcg .ROUTE .STK-MED ONE Stop: 07/04/19 16:04 Fentanyl (Sublimaze) 50 mcg IVPUSH Q5M PRN PRN Reason: Pain Last Admin: 07/04/19 20:52 Dose: 50 mcg Fentanyl (Sublimaze) Confirm Administered Dose 250 mcg .ROUTE .STK-MED ONE Stop: 07/04/19 17:39 Fentanyl (Sublimaze) Confirm Administered Dose 250 mcg .ROUTE .STK-MED ONE Stop: 07/04/19 18:46 Glycopyrrolate (Robinul) Confirm Administered Dose 0.2 mg .ROUTE .STK-MED ONE Stop: 07/04/19 16:04 Hydromorphone HCl (Dilaudid) 1 mg IVPUSH ONETIME ONE Stop: 07/04/19 20:41 Last Admin: 07/04/19 20:59 Dose: 1 mg Sodium Chloride (Normal Saline) Confirm Administered Dose 20 mls @ as directed .ROUTE .STK-MED ONE Stop: 07/04/19 16:20 Cefazolin Sodium/Dextrose 2 gm (/ Premix) 50 mls @ 100 mls/hr IV Q8H [facility]Z MARINA Stop: 07/05/19 08:29 Last Admin: 07/05/19 07:58 Dose: 100 mls/hr Lactated Ringer's (Ringers, Lactated) 1,000 mls @ 999 mls/hr IV ONETIME ONE Stop: 07/05/19 10:56 Last Admin: 07/05/19 10:06 Dose: 999 mls/hr Ketorolac Tromethamine (Toradol) Confirm Administered Dose 30 mg .ROUTE .STK- MED ONE Stop: 07/04/19 16:04 Lidocaine (Xylocaine-Mpf 2%) Confirm Administered Dose 5 ml .ROUTE .STK-MED ONE Stop: 07/04/19 16:04 Midazolam HCl (Versed 1 Mg/Ml) Confirm Administered Dose 2 mg .ROUTE .STK-MED ONE Stop: 07/04/19 16:04 Ondansetron HCl (Zofran) Confirm Administered Dose 4 mg .ROUTE .STK-MED ONE Stop: 07/04/19 16:04 Phenylephrine HCl (Phenylephrine In Ns 100 Mcg/Ml) Confirm Administered Dose 1 mg .ROUTE .STK-MED ONE Stop: 07/04/19 17:46 Phenylephrine HCl (Giancarlo-Synephrine) Confirm Administered Dose 20 mg .ROUTE .STK- MED ONE Stop: 07/04/19 18:35 Propofol (Diprivan 20 Ml) Confirm Administered Dose 200 mg .ROUTE .STK-MED ONE Stop: 07/04/19 16:04 Rocuronium [place] (Zemuron) Confirm Administered Dose 100 mg .ROUTE .STK-MED ONE Stop: 07/04/19 16:04 Sugammadex Sodium ([place]) Confirm Administered Dose 200 mg .ROUTE .STK-MED ONE Stop: 07/04/19 16:13 - Exam General: Alert, Oriented, Cooperative, No Acute Distress HEENT: Pupils Equal, Pupils Reactive, EOMI, Mucous Membr. Moist/[place] Neck: Supple, Trachea Midline Lungs: Normal Respiratory Effort GI/Abdominal Exam: No Distention Extremities: Leg Pain, Limited Range of Motion Peripheral Pulses: 2+: Posterior Tibial (L), Posterior Tibial (R), Dorsalis Pedis (L), Dorsalis Pedis (R) Skin: Warm, Dry, Intact Wound/Incisions: Healing Well, Drainage Neurological: No New Focal Deficit Psy/Mental Status: Alert, Normal Affect, Normal Mood Sepsis Event Note - Evaluation Sepsis Screening Result: No Definite Risk - Focused Exam Vital Signs: Vital Signs Temp Temp Pulse Resp BP BP Pulse Ox 07/05/19 11:28 37.1 C 91 12 109/52 L 99 07/05/19 10:31 36.8 C 36.8 C 87 17 91/44 L 95 07/05/19 09:52 37.1 C 37.1 C 85 14 96/51 L 98 07/05/19 09:47 36.9 C 36.9 C 85 12 89/56 L 89/56 L 100 07/05/19 09:32 37.4 C 37.4 C 84 14 92/47 L 97 07/05/19 08:55 37.2 C 85 16 98/47 L 95 07/05/19 08:26 37.0 C 90 13 90/49 L 100 07/05/19 07:25 37.1 C 88 14 101/47 L 98 07/05/19 06:53 37.2 C 15 94/45 L 98 07/05/19 06:38 37.1 C 17 105/46 L 98 07/05/19 05:00 16 85/45 L 94 L 07/05/19 04:00 36.8 C 14 97/39 L 94 L 07/05/19 03:00 16 87/48 L 95 07/05/19 02:00 15 96/48 L 99 07/05/19 01:00 12 89/52 L 100 07/05/19 00:00 36.7 C 14 88/50 L 98 Date Exam was Performed: 07/05/19 Time Exam was Performed: 11:51 - Problem List & Annotations (1) Displaced subtrochanteric fracture of right femur, initial encounter for closed fracture SNOMED Code(s): 530380708, 932740056, 114543397 Code(s): S72.21XA - DISPLACED SUBTROCHANTERIC FRACTURE OF RIGHT FEMUR, INIT Status: Acute Current Visit: Yes Onset Date: ~07/04/19 - Problem List Review Problem List Initiated/Reviewed/Updated: Yes - My Orders Last 24 Hours: My Active Orders 07/04/19 15:35 Admission Status [Patient Status] [ADT] Stat 07/04/19 15:45 OR Fluoro-NC [CR] Routine 07/04/19 20:33 Neurovascular Check [RC] BID OT Evaluation and Treatment [CONS] Routine Acetaminophen/oxyCODONE [Percocet 325-5 MG] 1 - 2 tab PO Q4H PRN Ondansetron [Zofran] 4 mg IVPUSH Q6H PRN diphenhydrAMINE [Benadryl] 25 mg IVPUSH Q4H PRN Ice Therapy [OM.PC] Routine Code Status [Resuscitation Status] Routine 07/04/19 20:34 Cooling Warming Measures [RC] ASDIRECTED RT Incentive Spirometry [RC] Q2HWA Wound Care [RC] DAILY PT Evaluation and Treatment [CONS] Routine Sequential Compression Device [OM.PC] Routine 07/04/19 20:37 Antiembolic Devices [RC] PER UNIT ROUTINE 07/04/19 20:39 HYDROmorphone [Dilaudid] 2 mg IVPUSH Q2H PRN 07/04/19 20:45 Lactated Ringers [Ringers, Lactated] 1,000 ml IV ASDIRECTED 07/04/19 20:59 Consult to Physician [CONS] Routine 07/04/19 21:00 Docusate Sodium [Colace] 100 mg PO BID 07/04/19 21:01 Notify Provider Consults [RC] ASDIRECTED 07/04/19 21:05 Patient Status Manage Transfer [TRANSFER] Routine 07/05/19 09:00 Aspirin 325 mg PO DAILY Celecoxib [CeleBREX] 100 mg PO BID 07/06/19 06:00 HEMOGLOBIN/HEMATOCRIT,HH [HEME] DAILY - Plan Plan:: hold asa, celebrex today wait for pressure to stabilize to move out of ice to ms when medicine approves pt/ot tomorrow up to chair today pain control scds
[2019-07-06] MEDS: Acetaminophen/oxyCODONE 325-5 MG Tab PO PRN ×5 (05:41→23:21)
[2019-07-06] MEDS: Lactated Ringers 1,000 ML IV SCH (07:01)
--- NOTE | 2019-07-06 09:00 | PCM.CONSN ---
<Milena Henriquez - Last Filed: 07/06/19 12:15> - General Info Date of Service: 07/06/19 Subjective Update: The patient is a 54 year old male who is post op day 2 from femur fracture. Medicine consulted due to intra-operative bleeding requiring transfusion and hypotension. Overall patient received 3 units PRBC and 1 FFP and hemoglobin has stabilized and BP improved. Nursing reports that no bleeding from incision this morning. Patient reports pain under control, denies chest pain, shortness of breath, or abdominal pain. Eating, drinking and going to the bathroom without issue. - Review of Systems General: Reports: No Symptoms HEENT: Reports: No Symptoms Pulmonary: Reports: No Symptoms Cardiovascular: Reports: No Symptoms Gastrointestinal: Reports: No Symptoms Genitourinary: Reports: No Symptoms Musculoskeletal: Reports: Leg Pain Skin: Reports: No Symptoms Neurological: Reports: No Symptoms Psychiatric: Reports: No Symptoms - Patient Data Vitals - Most Recent: Last Vital Signs Temp 98.5 F 07/06/19 08:00 Pulse 88 07/05/19 17:03 Resp 16 07/06/19 08:00 BP 113/54 L 07/06/19 08:00 Pulse Ox 96 07/06/19 08:00 Weight - Most Recent: 93.639 kg I&O - Last 24 Hours: Intake & Output 07/05/19 07/06/19 07/06/19 22:59 06:59 14:59 Intake Total 1360 2020 Output Total 3345 1950 Balance -1984 Lab Results Last 24 Hours: Laboratory Results - last 24 hr 07/04/19 07/05/19 07/06/19 Range/Units 19:35 15:05 05:35 WBC 10.86 (4.0-11.0) K/uL RBC 3.15 L (4.50-5.90) M/uL Hgb 9.1 L 9.5 L (13.0-17.0) g/dL Hct 25.7 L 27.7 L (38.0-50.0) % MCV 87.9 (80.0-98.0) fL MCH 30.2 (27.0-32.0) pg MCHC 34.3 (31.0-37.0) g/dL RDW Std Deviation 43.5 (28.0-62.0) fl RDW Coeff of [place] 14 (11.0-15.0) % Plt Count 158 (150-400) K/uL MPV 10.00 (7.40-12.00) fL Neut % (Auto) 75.6 (48.0-80.0) % Lymph % (Auto) 10.1 L (16.0-40.0) % [place] % (Auto) 10.4 (0.0-15.0) % Eos % (Auto) 3.6 (0.0-7.0) % Baso % (Auto) 0.3 (0.0-1.5) % Neut # (Auto) 8.2 H (1.4-5.7) K/uL Lymph # (Auto) 1.1 (0.6-2.4) K/uL [place] # (Auto) 1.1 H (0.0-0.8) K/uL Eos # (Auto) 0.4 (0.0-0.7) K/uL Baso # (Auto) 0.0 (0.0-0.1) K/uL Nucleated RBC % 0.0 /100WBC Nucleated RBCs # 0 K/uL Blood Type O NEGATIVE Antibody Screen NEGATIVE Crossmatch See Detail Med Orders - Current: Current Medications Aspirin (Aspirin) 325 mg PO DAILY [facility] Last Admin: 07/05/19 10:00 Dose: Not Given Celecoxib (Celebrex) 100 mg PO BID [facility] Last Admin: 07/05/19 10:00 Dose: Not Given Cyclobenzaprine HCl (Flexeril) 10 mg PO TID PRN PRN Reason: muscle spasms Diazepam (Valium) 2 mg IVPUSH Q4H PRN PRN Reason: uncontrolled spasms Diphenhydramine HCl (Benadryl) 25 mg IVPUSH Q4H PRN PRN Reason: Itching Docusate Sodium (Colace) 100 mg PO BID [facility] Last Admin: 07/05/19 21:13 Dose: 100 mg Hydromorphone HCl (Dilaudid) 2 mg IVPUSH Q2H PRN PRN Reason: Pain Lactated Ringer's (Ringers, Lactated) 1,000 mls @ 100 mls/hr IV ASDIRECTED [facility] Last Admin: 07/06/19 07:01 Dose: 100 mls/hr Lactated Ringer's (Ringers, Lactated) 2,000 mls @ 999 mls/hr IV [facility] Last Admin: 07/05/19 05:59 Dose: 999 mls/hr Ondansetron HCl (Zofran) 4 mg IVPUSH Q6H PRN PRN Reason: Nausea/Vomiting Oxycodone/Acetaminophen (Percocet 325-5 Mg) 1 - 2 tab PO Q4H PRN PRN Reason: Pain Last Admin: 07/06/19 05:41 Dose: 2 tab Discontinued Medications Bupivacaine HCl (Sensorcaine-Mpf 0.25%) Confirm Administered Dose 30 ml .ROUTE .STK-MED ONE Stop: 07/04/19 20:11 Cefazolin Sodium (Ancef) Confirm Administered Dose 2 gm .ROUTE .STK-MED ONE Stop: 07/04/19 16:20 Fentanyl (Fentanyl) 75 mcg IVPUSH ONETIME ONE Stop: 07/04/19 14:13 Last Admin: 07/04/19 14:23 Dose: 75 mcg Fentanyl (Sublimaze) Confirm Administered Dose 100 mcg .ROUTE .STK-MED ONE Stop: 07/04/19 14:17 Last Admin: 07/04/19 14:23 Dose: Not Given Fentanyl (Sublimaze) Confirm Administered Dose 250 mcg .ROUTE .STK-MED ONE Stop: 07/04/19 16:04 Fentanyl (Sublimaze) 50 mcg IVPUSH Q5M PRN PRN Reason: Pain Last Admin: 07/04/19 20:52 Dose: 50 mcg Fentanyl (Sublimaze) Confirm Administered Dose 250 mcg .ROUTE .STK-MED ONE Stop: 07/04/19 17:39 Fentanyl (Sublimaze) Confirm Administered Dose 250 mcg .ROUTE .STK-MED ONE Stop: 07/04/19 18:46 Glycopyrrolate (Robinul) Confirm Administered Dose 0.2 mg .ROUTE .STK-MED ONE Stop: 07/04/19 16:04 Hydromorphone HCl (Dilaudid) 1 mg IVPUSH ONETIME ONE Stop: 07/04/19 20:41 Last Admin: 07/04/19 20:59 Dose: 1 mg Sodium Chloride (Normal Saline) Confirm Administered Dose 20 mls @ as directed .ROUTE .STK-MED ONE Stop: 07/04/19 16:20 Cefazolin Sodium/Dextrose 2 gm (/ Premix) 50 mls @ 100 mls/hr IV Q8H [facility] Stop: 07/05/19 08:29 Last Admin: 07/05/19 07:58 Dose: 100 mls/hr Lactated Ringer's (Ringers, Lactated) 1,000 mls @ 999 mls/hr IV ONETIME ONE Stop: 07/05/19 10:56 Last Admin: 07/05/19 10:06 Dose: 999 mls/hr Ketorolac Tromethamine (Toradol) Confirm Administered Dose 30 mg .ROUTE .STK- MED ONE Stop: 07/04/19 16:04 Lidocaine (Xylocaine-Mpf 2%) Confirm Administered Dose 5 ml .ROUTE .STK-MED ONE Stop: 07/04/19 16:04 Midazolam HCl (Versed 1 Mg/Ml) Confirm Administered Dose 2 mg .ROUTE .STK-MED ONE Stop: 07/04/19 16:04 Ondansetron HCl (Zofran) Confirm Administered Dose 4 mg .ROUTE .STK-MED ONE Stop: 07/04/19 16:04 Phenylephrine HCl (Phenylephrine In Ns 100 Mcg/Ml) Confirm Administered Dose 1 mg .ROUTE .STK-MED ONE Stop: 07/04/19 17:46 Phenylephrine HCl (Giancarlo-Synephrine) Confirm Administered Dose 20 mg .ROUTE .STK- MED ONE Stop: 07/04/19 18:35 Propofol (Diprivan 20 Ml) Confirm Administered Dose 200 mg .ROUTE .STK-MED ONE Stop: 07/04/19 16:04 Rocuronium [place] (Zemuron) Confirm Administered Dose 100 mg .ROUTE .STK-MED ONE Stop: 07/04/19 16:04 Sugammadex Sodium (Bridion) Confirm Administered Dose 200 mg .ROUTE .STK-MED ONE Stop: 07/04/19 16:13 - Exam General: Alert, Oriented, Cooperative Lungs: Clear to Auscultation, Normal Respiratory Effort Cardiovascular: Regular Rate, Regular Rhythm GI/Abdominal Exam: Normal Bowel Sounds, Soft, Non-Tender Skin: Warm, Dry Wound/Incisions: Dressing Dry and Intact (per nursing) Neurological: No New Focal Deficit Psy/Mental Status: Alert, Normal Affect, Normal Mood Sepsis Event Note - Evaluation Sepsis Screening Result: No Definite Risk - Focused Exam Vital Signs: Vital Signs Temp Resp BP Pulse Ox 07/06/19 08:00 98.5 F 16 113/54 L 96 07/06/19 07:00 22 H 104/57 L 93 L 07/06/19 06:00 98.8 F 20 118/60 95 07/06/19 05:00 98.8 F 22 H 103/60 93 L 07/06/19 04:00 98.8 F 20 111/54 L 94 L 07/06/19 03:00 98.6 F 16 106/58 L 95 07/06/19 02:00 98.8 F 20 103/52 L 93 L 07/06/19 01:00 98.6 F 20 96/52 L 92 L 07/06/19 00:00 99 F 14 107/49 L 92 L 07/05/19 23:00 100.0 F 19 102/51 L 93 L 07/05/19 22:00 100.0 F 18 97/51 L 97 07/05/19 21:00 100.2 F 15 121/51 L 100 Date Exam was Performed: 07/06/19 Time Exam was Performed: 12:15 Consult PN Assessment/Plan Problem List Initiated/Reviewed/Updated: Yes Plan: 1. Subtrochanteric femur fracture post op day 2- primary team ortho, orders per ortho, PT/OT today 2. Blood loss anemia s/p transfusion 3 PRBCs and 1 FFP- Hemoglobin stable, no significant bleeding per nursing, may resume 81 mg aspirin today, check H/H in AM. 3. Hypotension- improved, continue IVFs Ok to transfer to medical floor today. <Nicci Cheng - Last Filed: 07/06/19 21:06> - Patient Data Vitals - Most Recent: Last Vital Signs Temp 37.4 C 07/06/19 20:21 Pulse 100 07/06/19 20:21 Resp 15 07/06/19 20:21 BP 143/64 H 07/06/19 20:21 Pulse Ox 100 07/06/19 20:21 I&O - Last 24 Hours: Intake & Output 07/06/19 07/06/19 07/06/19 06:59 14:59 22:59 Intake Total 2020 1638 Output Total 1950 1800 Balance 70 -162 Lab Results Last 24 Hours: Laboratory Results - last 24 hr 07/06/19 Range/Units 05:35 WBC 10.86 (4.0-11.0) K/uL RBC 3.15 L (4.50-5.90) M/uL Hgb 9.5 L (13.0-17.0) g/dL Hct 27.7 L (38.0-50.0) % MCV 87.9 (80.0-98.0) fL MCH 30.2 (27.0-32.0) pg MCHC 34.3 (31.0-37.0) g/dL RDW Std Deviation 43.5 (28.0-62.0) fl RDW Coeff of [place] 14 (11.0-15.0) % Plt Count 158 (150-400) K/uL MPV 10.00 (7.40-12.00) fL Neut % (Auto) 75.6 (48.0-80.0) % Lymph % (Auto) 10.1 L (16.0-40.0) % [place] % (Auto) 10.4 (0.0-15.0) % Eos % (Auto) 3.6 (0.0-7.0) % Baso % (Auto) 0.3 (0.0-1.5) % Neut # (Auto) 8.2 H (1.4-5.7) K/uL Lymph # (Auto) 1.1 (0.6-2.4) K/uL [place] # (Auto) 1.1 H (0.0-0.8) K/uL Eos # (Auto) 0.4 (0.0-0.7) K/uL Baso # (Auto) 0.0 (0.0-0.1) K/uL Nucleated RBC % 0.0 /100WBC Nucleated RBCs # 0 K/uL Med Orders - Current: Current Medications Aspirin (Aspirin) 81 mg PO DAILY [facility] Last Admin: 07/06/19 12:46 Dose: 81 mg Celecoxib (Celebrex) 100 mg PO BID [facility] Last Admin: 07/06/19 12:46 Dose: Not Given Cyclobenzaprine HCl (Flexeril) 10 mg PO TID PRN PRN Reason: muscle spasms Last Admin: 07/06/19 12:47 Dose: 10 mg Diazepam (Valium) 2 mg IVPUSH Q4H PRN PRN Reason: uncontrolled spasms Diphenhydramine HCl (Benadryl) 25 mg IVPUSH Q4H PRN PRN Reason: Itching Docusate Sodium (Colace) 100 mg PO BID [facility] Last Admin: 07/06/19 20:40 Dose: 100 mg Hydromorphone HCl (Dilaudid) 2 mg IVPUSH Q2H PRN PRN Reason: Pain Ondansetron HCl (Zofran) 4 mg IVPUSH Q6H PRN PRN Reason: Nausea/Vomiting Oxycodone/Acetaminophen (Percocet 325-5 Mg) 1 - 2 tab PO Q4H PRN PRN Reason: Pain Last Admin: 07/06/19 19:04 Dose: 1 tab Discontinued Medications Aspirin (Aspirin) 325 mg PO DAILY [facility] Last Admin: 07/06/19 12:45 Dose: Not Given Bupivacaine HCl (Sensorcaine-Mpf 0.25%) Confirm Administered Dose 30 ml .ROUTE .STK-MED ONE Stop: 07/04/19 20:11 Cefazolin Sodium (Ancef) Confirm Administered Dose 2 gm .ROUTE .STK-MED ONE Stop: 07/04/19 16:20 Fentanyl (Fentanyl) 75 mcg IVPUSH ONETIME ONE Stop: 07/04/19 14:13 Last Admin: 07/04/19 14:23 Dose: 75 mcg Fentanyl (Sublimaze) Confirm Administered Dose 100 mcg .ROUTE .STK-MED ONE Stop: 07/04/19 14:17 Last Admin: 07/04/19 14:23 Dose: Not Given Fentanyl (Sublimaze) Confirm Administered Dose 250 mcg .ROUTE .STK-MED ONE Stop: 07/04/19 16:04 Fentanyl (Sublimaze) 50 mcg IVPUSH Q5M PRN PRN Reason: Pain Last Admin: 07/04/19 20:52 Dose: 50 mcg Fentanyl (Sublimaze) Confirm Administered Dose 250 mcg .ROUTE .STK-MED ONE Stop: 07/04/19 17:39 Fentanyl (Sublimaze) Confirm Administered Dose 250 mcg .ROUTE .STK-MED ONE Stop: 07/04/19 18:46 Glycopyrrolate (Robinul) Confirm Administered Dose 0.2 mg .ROUTE .STK-MED ONE Stop: 07/04/19 16:04 Hydromorphone HCl (Dilaudid) 1 mg IVPUSH ONETIME ONE Stop: 07/04/19 20:41 Last Admin: 07/04/19 20:59 Dose: 1 mg Sodium Chloride (Normal Saline) Confirm Administered Dose 20 mls @ as directed .ROUTE .STK-MED ONE Stop: 07/04/19 16:20 Cefazolin Sodium/Dextrose 2 gm (/ Premix) 50 mls @ 100 mls/hr IV Q8H [facility] Stop: 07/05/19 08:29 Last Admin: 07/05/19 07:58 Dose: 100 mls/hr Lactated Ringer's (Ringers, Lactated) 1,000 mls @ 100 mls/hr IV ASDIRECTED [facility] Last Admin: 07/06/19 07:01 Dose: 100 mls/hr Lactated Ringer's (Ringers, Lactated) 2,000 mls @ 999 mls/hr IV BOLUS [facility] Last Admin: 07/05/19 05:59 Dose: 999 mls/hr Lactated Ringer's (Ringers, Lactated) 1,000 mls @ 999 mls/hr IV ONETIME ONE Stop: 07/05/19 10:56 Last Admin: 07/05/19 10:06 Dose: 999 mls/hr Ketorolac Tromethamine (Toradol) Confirm Administered Dose 30 mg .ROUTE .ST- MED ONE Stop: 07/04/19 16:04 Lidocaine (Xylocaine-Mpf 2%) Confirm Administered Dose 5 ml .ROUTE .STK-MED ONE Stop: 07/04/19 16:04 Midazolam HCl (Versed 1 Mg/Ml) Confirm Administered Dose 2 mg .ROUTE .ST-MED ONE Stop: 07/04/19 16:04 Ondansetron HCl (Zofran) Confirm Administered Dose 4 mg .ROUTE .STK-MED ONE Stop: 07/04/19 16:04 Phenylephrine HCl (Phenylephrine In Ns 100 Mcg/Ml) Confirm Administered Dose 1 mg .ROUTE .STK-MED ONE Stop: 07/04/19 17:46 Phenylephrine HCl (Giancarlo-Synephrine) Confirm Administered Dose 20 mg .ROUTE .STK- MED ONE Stop: 07/04/19 18:35 Propofol (Diprivan 20 Ml) Confirm Administered Dose 200 mg .ROUTE .STK-MED ONE Stop: 07/04/19 16:04 Rocuronium [place] (Zemuron) Confirm Administered Dose 100 mg .ROUTE .STK-MED ONE Stop: 07/04/19 16:04 Sugammadex Sodium (Bridion) Confirm Administered Dose 200 mg .ROUTE .STK-MED ONE Stop: 07/04/19 16:13 Sepsis Event Note - Focused Exam Vital Signs: Vital Signs Temp Pulse Resp BP Pulse Ox 07/06/19 20:21 37.4 C 100 15 143/64 H 100 07/06/19 17:38 37.0 C 99 16 138/62 99 07/06/19 16:00 36.8 C 14 120/68 98 07/06/19 12:00 36.9 C 11 L 113/60 99 07/06/19 11:00 19 108/54 L 89 L 07/06/19 10:00 15 124/65 98 Date Exam was Performed: 07/06/19 Time Exam was Performed: 21:05 Consult PN Assessment/Plan (1) Blood loss, postoperative SNOMED Code(s): 533986156 Code(s): LRM9632 - Current Visit: Yes (2) Displaced subtrochanteric fracture of right femur, initial encounter for closed fracture SNOMED Code(s): 090629090, 081331751, 782308532 Code(s): S72.21XA - DISPLACED SUBTROCHANTERIC FRACTURE OF RIGHT FEMUR, INIT Current Visit: Yes Onset Date: ~07/04/19 (3) Benign cardiac murmur SNOMED Code(s): 39191669 Code(s): R01.0 - BENIGN AND INNOCENT CARDIAC MURMURS Current Visit: Yes Plan: I have seen and evaluated the patient and agree with the residents note unless specified in my note
[2019-07-06] MEDS: Docusate Sodium 100 MG Cap PO SCH ×2 (09:43→20:40)
--- NOTE | 2019-07-06 12:43 | PCM.SURGPN ---
- General Info Date of Service: 07/06/19 (7937) Date of Surgery/Procedure: 07/04/19 (s/p Right Femur cephalomedullary nail by Dr. Bull Sandoval) POD#: 2 Admission Diagnosis/Problem: Fracture of femur Functional Status: Reports: Pain Controlled ("Able to spread out need for pain medication."), Tolerating Diet, Ambulating (ambulated with PT this morning, toe touch with walker.), Urinating - Review of Systems General: Reports: No Symptoms Pulmonary: Reports: No Symptoms. Denies: Shortness of Breath Cardiovascular: Reports: No Symptoms. Denies: Chest Pain Gastrointestinal: Denies: Nausea Musculoskeletal: Reports: Other (Right thigh pain s/p femur fracture and muscle spasms after therapy) Neurological: Reports: No Symptoms Psychiatric: Reports: No Symptoms - Patient Data Vitals - Most Recent: Last Vital Signs Temp 36.9 C 07/06/19 08:00 Pulse 88 07/05/19 17:03 Resp 14 07/06/19 09:00 BP 107/60 07/06/19 09:00 Pulse Ox 100 07/06/19 09:00 Weight - Most Recent: 93.639 kg I&O - Last 24 Hours: Intake & Output 07/05/19 07/06/19 07/06/19 22:59 06:59 14:59 Intake Total 1360 2020 Output Total 3345 1950 Balance -1984 Lab Results Last 24 Hrs: Laboratory Results - last 24 hr 07/05/19 07/06/19 Range/Units 15:05 05:35 WBC 10.86 (4.0-11.0) K/uL RBC 3.15 L (4.50-5.90) M/uL Hgb 9.1 L 9.5 L (13.0-17.0) g/dL Hct 25.7 L 27.7 L (38.0-50.0) % MCV 87.9 (80.0-98.0) fL MCH 30.2 (27.0-32.0) pg MCHC 34.3 (31.0-37.0) g/dL RDW Std Deviation 43.5 (28.0-62.0) fl RDW Coeff of [place] 14 (11.0-15.0) % Plt Count 158 (150-400) K/uL MPV 10.00 (7.40-12.00) fL Neut % (Auto) 75.6 (48.0-80.0) % Lymph % (Auto) 10.1 L (16.0-40.0) % [place] % (Auto) 10.4 (0.0-15.0) % Eos % (Auto) 3.6 (0.0-7.0) % Baso % (Auto) 0.3 (0.0-1.5) % Neut # (Auto) 8.2 H (1.4-5.7) K/uL Lymph # (Auto) 1.1 (0.6-2.4) K/uL [place] # (Auto) 1.1 H (0.0-0.8) K/uL Eos # (Auto) 0.4 (0.0-0.7) K/uL Baso # (Auto) 0.0 (0.0-0.1) K/uL Nucleated RBC % 0.0 /100WBC Nucleated RBCs # 0 K/uL Med Orders - Current: Current Medications Aspirin (Aspirin) 325 mg PO DAILY [facility] Last Admin: 07/05/19 10:00 Dose: Not Given Aspirin (Aspirin) 81 mg PO DAILY [facility] Celecoxib (Celebrex) 100 mg PO BID [facility] Last Admin: 07/05/19 10:00 Dose: Not Given Cyclobenzaprine HCl (Flexeril) 10 mg PO TID PRN PRN Reason: muscle spasms Diazepam (Valium) 2 mg IVPUSH Q4H PRN PRN Reason: uncontrolled spasms Diphenhydramine HCl (Benadryl) 25 mg IVPUSH Q4H PRN PRN Reason: Itching Docusate Sodium (Colace) 100 mg PO BID [facility] Last Admin: 07/06/19 09:43 Dose: 100 mg Hydromorphone HCl (Dilaudid) 2 mg IVPUSH Q2H PRN PRN Reason: Pain Lactated Ringer's (Ringers, Lactated) 1,000 mls @ 100 mls/hr IV ASDIRECTED [facility] Last Admin: 07/06/19 07:01 Dose: 100 mls/hr Lactated Ringer's (Ringers, Lactated) 2,000 mls @ 999 mls/hr IV BOLUS [facility] Last Admin: 07/05/19 05:59 Dose: 999 mls/hr Ondansetron HCl (Zofran) 4 mg IVPUSH Q6H PRN PRN Reason: Nausea/Vomiting Oxycodone/Acetaminophen (Percocet 325-5 Mg) 1 - 2 tab PO Q4H PRN PRN Reason: Pain Last Admin: 07/06/19 09:41 Dose: 2 tab Discontinued Medications Bupivacaine HCl (Sensorcaine-Mpf 0.25%) Confirm Administered Dose 30 ml .ROUTE .STK-MED ONE Stop: 07/04/19 20:11 Cefazolin Sodium (Ancef) Confirm Administered Dose 2 gm .ROUTE .STK-MED ONE Stop: 07/04/19 16:20 Fentanyl (Fentanyl) 75 mcg IVPUSH ONETIME ONE Stop: 07/04/19 14:13 Last Admin: 07/04/19 14:23 Dose: 75 mcg Fentanyl (Sublimaze) Confirm Administered Dose 100 mcg .ROUTE .STK-MED ONE Stop: 07/04/19 14:17 Last Admin: 07/04/19 14:23 Dose: Not Given Fentanyl (Sublimaze) Confirm Administered Dose 250 mcg .ROUTE .STK-MED ONE Stop: 07/04/19 16:04 Fentanyl (Sublimaze) 50 mcg IVPUSH Q5M PRN PRN Reason: Pain Last Admin: 07/04/19 20:52 Dose: 50 mcg Fentanyl (Sublimaze) Confirm Administered Dose 250 mcg .ROUTE .STK-MED ONE Stop: 07/04/19 17:39 Fentanyl (Sublimaze) Confirm Administered Dose 250 mcg .ROUTE .STK-MED ONE Stop: 07/04/19 18:46 Glycopyrrolate (Robinul) Confirm Administered Dose 0.2 mg .ROUTE .STK-MED ONE Stop: 07/04/19 16:04 Hydromorphone HCl (Dilaudid) 1 mg IVPUSH ONETIME ONE Stop: 07/04/19 20:41 Last Admin: 07/04/19 20:59 Dose: 1 mg Sodium Chloride (Normal Saline) Confirm Administered Dose 20 mls @ as directed .ROUTE .STK-MED ONE Stop: 07/04/19 16:20 Cefazolin Sodium/Dextrose 2 gm (/ Premix) 50 mls @ 100 mls/hr IV Q8H [facility] Stop: 07/05/19 08:29 Last Admin: 07/05/19 07:58 Dose: 100 mls/hr Lactated Ringer's (Ringers, Lactated) 1,000 mls @ 999 mls/hr IV ONETIME ONE Stop: 07/05/19 10:56 Last Admin: 07/05/19 10:06 Dose: 999 mls/hr Ketorolac Tromethamine (Toradol) Confirm Administered Dose 30 mg .ROUTE .STK- MED ONE Stop: 07/04/19 16:04 Lidocaine (Xylocaine-Mpf 2%) Confirm Administered Dose 5 ml .ROUTE .STK-MED ONE Stop: 07/04/19 16:04 Midazolam HCl (Versed 1 Mg/Ml) Confirm Administered Dose 2 mg .ROUTE .STK-MED ONE Stop: 07/04/19 16:04 Ondansetron HCl (Zofran) Confirm Administered Dose 4 mg .ROUTE .STK-MED ONE Stop: 07/04/19 16:04 Phenylephrine HCl (Phenylephrine In Ns 100 Mcg/Ml) Confirm Administered Dose 1 mg .ROUTE .STK-MED ONE Stop: 07/04/19 17:46 Phenylephrine HCl (Giancarlo-Synephrine) Confirm Administered Dose 20 mg .ROUTE .STK- MED ONE Stop: 07/04/19 18:35 Propofol (Diprivan 20 Ml) Confirm Administered Dose 200 mg .ROUTE .STK-MED ONE Stop: 07/04/19 16:04 Rocuronium [place] (Zemuron) Confirm Administered Dose 100 mg .ROUTE .STK-MED ONE Stop: 07/04/19 16:04 Sugammadex Sodium (Bridion) Confirm Administered Dose 200 mg .ROUTE .STK-MED ONE Stop: 07/04/19 16:13 - Exam Wound/Incisions: Dressing Dry and Intact Quality Assessment: DVT Prophylaxis (bilateral SCDs) General: Alert, Oriented, Cooperative, No Acute Distress Lungs: Normal Respiratory Effort Cardiovascular: Other (PP2+) Extremities: Other (sensation grossly intact to RLE). No: Pedal Edema Skin: Warm, Dry Neurological: Normal Speech, Normal Tone Psy/Mental Status: Alert, Normal Affect, Normal Mood Sepsis Event Note - Evaluation Sepsis Screening Result: No Definite Risk - Focused Exam Vital Signs: Vital Signs Temp Resp BP Pulse Ox 07/06/19 09:00 14 107/60 100 07/06/19 08:00 36.9 C 16 113/54 L 96 07/06/19 07:00 22 H 104/57 L 93 L 07/06/19 06:00 37.1 C 20 118/60 95 07/06/19 05:00 37.1 C 22 H 103/60 93 L 07/06/19 04:00 37.1 C 20 111/54 L 94 L 07/06/19 03:00 37.0 C 16 106/58 L 95 07/06/19 02:00 37.1 C 20 103/52 L 93 L 07/06/19 01:00 37.0 C 20 96/52 L 92 L Date Exam was Performed: 07/06/19 Time Exam was Performed: 12:38 - Problem List Review Problem List Initiated/Reviewed/Updated: Yes - My Orders Last 24 Hours: Active Orders 24 hr Category Date Time Status Insert Urinary Catheter [OM.PC] ONETIME Care 07/05/19 15:49 Ordered Urinary Catheter Assessment [RC] ASDIRECTED Care 07/05/19 15:50 Active PT Evaluation and Treatment [CONS] BID Cons 07/06/19 10:18 Ordered HEMOGLOBIN/HEMATOCRIT,HH [HEME] DAILY Lab 07/07/19 06:00 Ordered HEMOGLOBIN/HEMATOCRIT,HH [HEME] DAILY Lab 07/08/19 06:00 Ordered HEMOGLOBIN/HEMATOCRIT,HH [HEME] DAILY Lab 07/09/19 06:00 Ordered Aspirin Med 07/06/19 13:00 Active 81 mg PO DAILY Cyclobenzaprine [Flexeril] Med 07/05/19 19:27 Active 10 mg PO TID PRN diazePAM [Valium] Med 07/05/19 19:27 Active 2 mg IVPUSH Q4H PRN Weight bearing status [OM.PC] Routine Oth 07/05/19 11:58 Ordered Medication Orders Aspirin (Aspirin) 325 mg PO DAILY [facility] Last Admin: 07/05/19 10:00 Dose: Aspirin (Aspirin) 81 mg PO DAILY [facility] Celecoxib (Celebrex) 100 mg PO BID [facility] Last Admin: 07/05/19 10:00 Dose: Cyclobenzaprine HCl (Flexeril) 10 mg PO TID PRN PRN Reason: muscle spasms Diazepam (Valium) 2 mg IVPUSH Q4H PRN PRN Reason: uncontrolled spasms Diphenhydramine HCl (Benadryl) 25 mg IVPUSH Q4H PRN PRN Reason: Itching Docusate Sodium (Colace) 100 mg PO BID [facility] Last Admin: 07/06/19 09:43 Dose: 100 mg Admin: 07/05/19 21:13 Dose: 100 mg Admin: 07/05/19 10:06 Dose: 100 mg Admin: 07/04/19 22:14 Dose: 100 mg Hydromorphone HCl (Dilaudid) 2 mg IVPUSH Q2H PRN PRN Reason: Pain Lactated Ringer's (Ringers, Lactated) 1,000 mls @ 100 mls/hr IV ASDIRECTED [facility] Last Admin: 07/06/19 07:01 Dose: 100 mls/hr Infusion: 07/06/19 07:01 Dose: 100 mls/hr Admin: 07/05/19 21:05 Dose: 100 mls/hr Infusion: 07/05/19 21:05 Dose: 100 mls/hr Admin: 07/05/19 11:14 Dose: 100 mls/hr Infusion: 07/05/19 08:05 Dose: 100 mls/hr Admin: 07/04/19 22:05 Dose: 100 mls/hr Lactated Ringer's (Ringers, Lactated) 2,000 mls @ 999 mls/hr IV BOLUS [facility] Last Admin: 07/05/19 05:59 Dose: 999 mls/hr Ondansetron HCl (Zofran) 4 mg IVPUSH Q6H PRN PRN Reason: Nausea/Vomiting Oxycodone/Acetaminophen (Percocet 325-5 Mg) 1 - 2 tab PO Q4H PRN PRN Reason: Pain Last Admin: 07/06/19 09:41 Dose: 2 tab Admin: 07/06/19 05:41 Dose: 2 tab Admin: 07/05/19 21:40 Dose: 2 tab Admin: 07/05/19 17:33 Dose: 2 tab Admin: 07/05/19 11:24 Dose: 2 tab Admin: 07/05/19 07:01 Dose: 2 tab Admin: 07/05/19 02:23 Dose: 2 tab Admin: 07/04/19 22:14 Dose: 1 tab - Assessment Assessment (Free Text/Narrative):: 1) s/p Right Femur cephalomuedullary nail 07/04/[address] Bull Sandoval 2) Acute blood loss anemia/stable at 9.4 (hospitalist consultation/management with [facility]) 3) hypotension/stable (hospitalist consultation/management with IVF) - Plan Plan (Free Text/Narrative):: Joe is doing well. Spoke with hospitalist in regards to medicine management of acute blood loss anemia, with Hg trending up from 9.1 to 9.4. BP stable as well. Agreeable with medicine to transfer from ICU to med/surg. Tolerating po food/fluids without N/V. Pain controlled with 2 Percocet q4h prn. OOB with PT this morning, toe touch with walker and standby assistance. With Hg stable and trending up, with dry dressing, start ASA 81mg daily today for VTE prophylaxis, along with bilateral SCDs. check Hg/Hct in AM. If stable/trending up, plan to increase ASA to 325mg daily and can start Celebrex. Will receive PT again this afternoon, and be OOB for meals. His plan, when ready for discharge, is to return home in [place] for rehabilitation.
[2019-07-06] MEDS: Aspirin 325 MG Tab PO SCH (12:45)
[2019-07-06] MEDS: Aspirin 81 MG Tab.Chew PO SCH (12:46)
[2019-07-06] MEDS: Celecoxib 100 MG Cap PO SCH (12:46)
[2019-07-06] MEDS: Cyclobenzaprine 10 MG Tab PO PRN (12:47)
[2019-07-07] MEDS: Acetaminophen/oxyCODONE 325-5 MG Tab PO PRN ×4 (05:32→20:24)
[2019-07-07] MEDS: Docusate Sodium 100 MG Cap PO SCH ×2 (08:15→20:24)
[2019-07-07] MEDS: Aspirin 81 MG Tab.Chew PO SCH (08:16)
[2019-07-07] MEDS: Cyclobenzaprine 10 MG Tab PO PRN ×2 (08:26→20:24)
--- NOTE | 2019-07-07 08:47 | PCM.SURGPN ---
- General Info Date of Service: 07/07/19 (0815) Date of Surgery/Procedure: 07/04/19 (s/p right femur cephalomedullary nail by Dr. Bull Sandoval) POD#: 3 Admission Diagnosis/Problem: Fracture of femur Functional Status: Reports: Pain Controlled (pain managable with Percocet), Tolerating Diet, Ambulating (WBAT with walker and standby assistance of staff. ), Urinating - Review of Systems General: Reports: No Symptoms Pulmonary: Reports: No Symptoms. Denies: Shortness of Breath Cardiovascular: Reports: No Symptoms. Denies: Chest Pain Gastrointestinal: Denies: Nausea, Vomiting Musculoskeletal: Reports: Leg Pain (left leg pain s/p repair of femur fracture) , Other (reactive muscle spasms after ambulating) Neurological: Reports: No Symptoms Psychiatric: Reports: No Symptoms - Patient Data Vitals - Most Recent: Last Vital Signs Temp 36.2 C 07/07/19 07:43 Pulse 87 07/07/19 07:43 Resp 14 07/07/19 07:43 BP 117/63 07/07/19 07:43 Pulse Ox 99 07/07/19 07:43 Weight - Most Recent: 90.12 kg I&O - Last 24 Hours: Intake & Output 07/06/19 07/07/19 07/07/19 22:59 06:59 14:59 Intake Total 1638 450 Output Total 1800 1400 Balance -162 -950 Lab Results Last 24 Hrs: Laboratory Results - last 24 hr 07/07/19 Range/Units 05:46 Hgb 9.5 L (13.0-17.0) g/dL Hct 27.6 L (38.0-50.0) % Med Orders - Current: Current Medications Aspirin (Aspirin) 81 mg PO DAILY [facility] Last Admin: 07/07/19 08:16 Dose: 81 mg Celecoxib (Celebrex) 100 mg PO BID [facility] Last Admin: 07/06/19 12:46 Dose: Not Given Cyclobenzaprine HCl (Flexeril) 10 mg PO TID PRN PRN Reason: muscle spasms Last Admin: 07/07/19 08:26 Dose: 10 mg Diazepam (Valium) 2 mg IVPUSH Q4H PRN PRN Reason: uncontrolled spasms Diphenhydramine HCl (Benadryl) 25 mg IVPUSH Q4H PRN PRN Reason: Itching Docusate Sodium (Colace) 100 mg PO BID [facility] Last Admin: 07/07/19 08:15 Dose: 100 mg Hydromorphone HCl (Dilaudid) 2 mg IVPUSH Q2H PRN PRN Reason: Pain Ondansetron HCl (Zofran) 4 mg IVPUSH Q6H PRN PRN Reason: Nausea/Vomiting Oxycodone/Acetaminophen (Percocet 325-5 Mg) 1 - 2 tab PO Q4H PRN PRN Reason: Pain Last Admin: 07/07/19 05:32 Dose: 1 tab Discontinued Medications Aspirin (Aspirin) 325 mg PO DAILY [facility] Last Admin: 07/06/19 12:45 Dose: Not Given Bupivacaine HCl (Sensorcaine-Mpf 0.25%) Confirm Administered Dose 30 ml .ROUTE .STK-MED ONE Stop: 07/04/19 20:11 Cefazolin Sodium (Ancef) Confirm Administered Dose 2 gm .ROUTE .STK-MED ONE Stop: 07/04/19 16:20 Fentanyl (Fentanyl) 75 mcg IVPUSH ONETIME ONE Stop: 07/04/19 14:13 Last Admin: 07/04/19 14:23 Dose: 75 mcg Fentanyl (Sublimaze) Confirm Administered Dose 100 mcg .ROUTE .STK-MED ONE Stop: 07/04/19 14:17 Last Admin: 07/04/19 14:23 Dose: Not Given Fentanyl (Sublimaze) Confirm Administered Dose 250 mcg .ROUTE .STK-MED ONE Stop: 07/04/19 16:04 Fentanyl (Sublimaze) 50 mcg IVPUSH Q5M PRN PRN Reason: Pain Last Admin: 07/04/19 20:52 Dose: 50 mcg Fentanyl (Sublimaze) Confirm Administered Dose 250 mcg .ROUTE .STK-MED ONE Stop: 07/04/19 17:39 Fentanyl (Sublimaze) Confirm Administered Dose 250 mcg .ROUTE .STK-MED ONE Stop: 07/04/19 18:46 Glycopyrrolate (Robinul) Confirm Administered Dose 0.2 mg .ROUTE .STK-MED ONE Stop: 07/04/19 16:04 Hydromorphone HCl (Dilaudid) 1 mg IVPUSH ONETIME ONE Stop: 07/04/19 20:41 Last Admin: 07/04/19 20:59 Dose: 1 mg Sodium Chloride (Normal Saline) Confirm Administered Dose 20 mls @ as directed .ROUTE .STK-MED ONE Stop: 07/04/19 16:20 Cefazolin Sodium/Dextrose 2 gm (/ Premix) 50 mls @ 100 mls/hr IV Q8H [facility] Stop: 07/05/19 08:29 Last Admin: 07/05/19 07:58 Dose: 100 mls/hr Lactated Ringer's (Ringers, Lactated) 1,000 mls @ 100 mls/hr IV ASDIRECTED [facility] Last Admin: 07/06/19 07:01 Dose: 100 mls/hr Lactated Ringer's (Ringers, Lactated) 2,000 mls @ 999 mls/hr IV BOLUS [facility] Last Admin: 07/05/19 05:59 Dose: 999 mls/hr Lactated Ringer's (Ringers, Lactated) 1,000 mls @ 999 mls/hr IV ONETIME ONE Stop: 07/05/19 10:56 Last Admin: 07/05/19 10:06 Dose: 999 mls/hr Ketorolac Tromethamine (Toradol) Confirm Administered Dose 30 mg .ROUTE .ST- MED ONE Stop: 07/04/19 16:04 Lidocaine (Xylocaine-Mpf 2%) Confirm Administered Dose 5 ml .ROUTE .ST-MED ONE Stop: 07/04/19 16:04 Midazolam HCl (Versed 1 Mg/Ml) Confirm Administered Dose 2 mg .ROUTE .ST-MED ONE Stop: 07/04/19 16:04 Ondansetron HCl (Zofran) Confirm Administered Dose 4 mg .ROUTE .ST-MED ONE Stop: 07/04/19 16:04 Phenylephrine HCl (Phenylephrine In Ns 100 Mcg/Ml) Confirm Administered Dose 1 mg .ROUTE .ST-MED ONE Stop: 07/04/19 17:46 Phenylephrine HCl (Giancarlo-Synephrine) Confirm Administered Dose 20 mg .ROUTE .ST- MED ONE Stop: 07/04/19 18:35 Propofol (Diprivan 20 Ml) Confirm Administered Dose 200 mg .ROUTE .ST-MED ONE Stop: 07/04/19 16:04 Rocuronium [place] (Zemuron) Confirm Administered Dose 100 mg .ROUTE .ST-MED ONE Stop: 07/04/19 16:04 Sugammadex Sodium (Bridion) Confirm Administered Dose 200 mg .ROUTE .STK-MED ONE Stop: 07/04/19 16:13 - Exam Wound/Incisions: Dressing Dry and Intact. No: Erythema Quality Assessment: DVT Prophylaxis (ASA 81mg, ambulation, OOB to chair for meals, and bilateral SCDs in bed) General: Alert, Oriented, Cooperative Lungs: Normal Respiratory Effort Cardiovascular: Other (PP2+) Extremities: No Pedal Edema, Normal Capillary Refill. No: Pedal Edema Skin: Warm, Dry Neurological: Normal Speech, Normal Tone Psy/Mental Status: Alert, Normal Affect, Normal Mood Physical Findings Comment:: Reinforced dressing right hip removed. Current exterior dressing dry with moderate amount of dried bloody drainage on underlying bandages. Incision lateral thigh intact with lisa. No surrounding erythema. Small amount of drainage from incision. Generalized amount of soft tissue swelling to left thigh. No pitting edema to flores, ankle or foot. Neurovascular exam WNL. Sensation grossly intact to LE. Sepsis Event Note - Evaluation Sepsis Screening Result: No Definite Risk - Focused Exam Vital Signs: Vital Signs Temp Pulse Resp BP BP Pulse Ox 07/07/19 07:43 36.2 C 87 14 117/63 99 07/07/19 04:00 36.8 C 70 15 112/57 L 96 07/07/19 00:00 37.2 C 86 15 118/63 100 Date Exam was Performed: 07/07/19 Time Exam was Performed: 08:42 - Problem List Review Problem List Initiated/Reviewed/Updated: Yes - My Orders Last 24 Hours: Active Orders 24 hr Category Date Time Status Transfer Patient (Change bed) [ADT] Routine ADT 07/06/19 12:51 Ordered PT Evaluation and Treatment [CONS] BID Cons 07/06/19 10:18 Ordered HEMOGLOBIN/HEMATOCRIT,HH [HEME] DAILY Lab 07/08/19 06:00 Ordered HEMOGLOBIN/HEMATOCRIT,HH [HEME] DAILY Lab 07/09/19 06:00 Ordered Aspirin Med 07/06/19 13:00 Active 81 mg PO DAILY Medication Orders Aspirin (Aspirin) 81 mg PO DAILY [facility] Last Admin: 07/07/19 08:16 Dose: 81 mg Admin: 07/06/19 12:46 Dose: 81 mg Celecoxib (Celebrex) 100 mg PO BID [facility] Last Admin: 07/06/19 12:46 Dose: Not Given Admin: 07/05/19 10:00 Dose: Cyclobenzaprine HCl (Flexeril) 10 mg PO TID PRN PRN Reason: muscle spasms Last Admin: 07/07/19 08:26 Dose: 10 mg Admin: 07/06/19 12:47 Dose: 10 mg Diazepam (Valium) 2 mg IVPUSH Q4H PRN PRN Reason: uncontrolled spasms Diphenhydramine HCl (Benadryl) 25 mg IVPUSH Q4H PRN PRN Reason: Itching Docusate Sodium (Colace) 100 mg PO BID [facility] Last Admin: 07/07/19 08:15 Dose: 100 mg Admin: 07/06/19 20:40 Dose: 100 mg Admin: 07/06/19 09:43 Dose: 100 mg Admin: 07/05/19 21:13 Dose: 100 mg Admin: 07/05/19 10:06 Dose: 100 mg Admin: 07/04/19 22:14 Dose: 100 mg Hydromorphone HCl (Dilaudid) 2 mg IVPUSH Q2H PRN PRN Reason: Pain Ondansetron HCl (Zofran) 4 mg IVPUSH Q6H PRN PRN Reason: Nausea/Vomiting Oxycodone/Acetaminophen (Percocet 325-5 Mg) 1 - 2 tab PO Q4H PRN PRN Reason: Pain Last Admin: 07/07/19 05:32 Dose: 1 tab Admin: 07/06/19 23:21 Dose: 1 tab Admin: 07/06/19 19:04 Dose: 1 tab Admin: 07/06/19 13:55 Dose: 2 tab Admin: 07/06/19 09:41 Dose: 2 tab Admin: 07/06/19 05:41 Dose: 2 tab Admin: 07/05/19 21:40 Dose: 2 tab Admin: 07/05/19 17:33 Dose: 2 tab Admin: 07/05/19 11:24 Dose: 2 tab Admin: 07/05/19 07:01 Dose: 2 tab Admin: 07/05/19 02:23 Dose: 2 tab Admin: 07/04/19 22:14 Dose: 1 tab - Assessment Assessment (Free Text/Narrative):: 1) Right femur fracture s/p cephalomedullary nail 07/04/[address] Bull Sandoval 2) acute blood loss ANEMIA, stable 3) hypotension, resolved - Plan Plan (Free Text/Narrative):: Joe is progressing slowly. VSS. Blood pressure WNL. Afebrile. IV fluids discontinued yesterday as tolerating oral fluids without N/V. Voiding. Pain manageable with Percocet. OOB with standby assistance of staff, WBAT (toe touch demonstrated), ambulated from bed to chair. DVT prophylaxis : ASA 81mg (hold off increasing to 325mg with current hip drainage and post-traumatic anemia), SCDs bilaterally, and ambulation/OOB. Surgical dressing removed and new AquaCell bandage applied today. He is progressing towards discharge well, and don't expect this to be today as need to monitor hip drainage, continue pain control, and continued PT.
--- NOTE | 2019-07-07 13:16 | CR ---
Right hip: Multiple fluoroscopic spot views were obtained utilizing C-arm device. Comparison: Previous right femur and hip study of 07/04/19. 8 fluoroscopic spot views were obtained of the right hip showing compression screw across the femoral neck into the femoral head. Intramedullary bala placement is also noted. Fluoroscopy time not given at time of dictation. Orthopedic hardware affixes previous proximal diaphyseal femur fracture. Impression: 1. Operative study showing orthopedic fixation of previous proximal femoral shaft fracture. Diagnostic code #2 This report was dictated in [place] Standard Time
[2019-07-08] MEDS: Acetaminophen/oxyCODONE 325-5 MG Tab PO PRN ×2 (07:15→11:55)
[2019-07-08] MEDS: Celecoxib 100 MG Cap PO SCH (09:18)
[2019-07-08] MEDS: Cyclobenzaprine 10 MG Tab PO PRN ×2 (09:18→17:21)
[2019-07-08] MEDS: Aspirin 81 MG Tab.Chew PO SCH (09:18)
[2019-07-08] MEDS: Docusate Sodium 100 MG Cap PO SCH (09:18)
--- NOTE | 2019-07-08 11:45 | PCM.SURGPN ---
- General Info Date of Service: 07/08/19 (1100) Date of Surgery/Procedure: 07/04/19 (s/p Right femur cephalomedullary nail by Dr. Bull Sandoval) POD#: 4 Admission Diagnosis/Problem: Fracture of femur Functional Status: Reports: Pain Controlled (pain tolerable with Percocet and Flexeril if needed), Tolerating Diet, Ambulating (ambulated to and in hallway with PT this morning. ), Urinating - Review of Systems General: Reports: No Symptoms Pulmonary: Reports: No Symptoms Cardiovascular: Reports: No Symptoms Gastrointestinal: Reports: No Symptoms. Denies: Nausea, Vomiting Musculoskeletal: Reports: Leg Pain (right thigh pain s/p femur fracture surgery) Neurological: Reports: No Symptoms Psychiatric: Reports: No Symptoms - Patient Data Vitals - Most Recent: Last Vital Signs Temp 36.4 C 07/08/19 07:15 Pulse 88 07/08/19 07:15 Resp 18 07/08/19 07:15 BP 110/58 L 07/08/19 07:15 Pulse Ox 99 07/08/19 07:15 Weight - Most Recent: 90.12 kg I&O - Last 24 Hours: Intake & Output 07/07/19 07/08/19 07/08/19 22:59 06:59 14:59 Intake Total 1360 550 Output Total 1530 1200 Balance -170 -650 Lab Results Last 24 Hrs: Laboratory Results - last 24 hr 07/08/19 Range/Units 06:05 Hgb 9.0 L (13.0-17.0) g/dL Hct 26.2 L (38.0-50.0) % Med Orders - Current: Current Medications Aspirin (Aspirin) 81 mg PO DAILY [facility] Last Admin: 07/08/19 09:18 Dose: 81 mg Celecoxib (Celebrex) 100 mg PO BID [facility] Last Admin: 07/08/19 09:18 Dose: 100 mg Cyclobenzaprine HCl (Flexeril) 10 mg PO TID PRN PRN Reason: muscle spasms Last Admin: 07/08/19 09:18 Dose: 10 mg Diazepam (Valium) 2 mg IVPUSH Q4H PRN PRN Reason: uncontrolled spasms Diphenhydramine HCl (Benadryl) 25 mg IVPUSH Q4H PRN PRN Reason: Itching Docusate Sodium (Colace) 100 mg PO BID [facility] Last Admin: 07/08/19 09:18 Dose: 100 mg Hydromorphone HCl (Dilaudid) 2 mg IVPUSH Q2H PRN PRN Reason: Pain Ondansetron HCl (Zofran) 4 mg IVPUSH Q6H PRN PRN Reason: Nausea/Vomiting Oxycodone/Acetaminophen (Percocet 325-5 Mg) 1 - 2 tab PO Q4H PRN PRN Reason: Pain Last Admin: 07/08/19 07:15 Dose: 2 tab Discontinued Medications Aspirin (Aspirin) 325 mg PO DAILY [facility] Last Admin: 07/06/19 12:45 Dose: Not Given Bupivacaine HCl (Sensorcaine-Mpf 0.25%) Confirm Administered Dose 30 ml .ROUTE .STK-MED ONE Stop: 07/04/19 20:11 Cefazolin Sodium (Ancef) Confirm Administered Dose 2 gm .ROUTE .STK-MED ONE Stop: 07/04/19 16:20 Fentanyl (Fentanyl) 75 mcg IVPUSH ONETIME ONE Stop: 07/04/19 14:13 Last Admin: 07/04/19 14:23 Dose: 75 mcg Fentanyl (Sublimaze) Confirm Administered Dose 100 mcg .ROUTE .STK-MED ONE Stop: 07/04/19 14:17 Last Admin: 07/04/19 14:23 Dose: Not Given Fentanyl (Sublimaze) Confirm Administered Dose 250 mcg .ROUTE .STK-MED ONE Stop: 07/04/19 16:04 Fentanyl (Sublimaze) 50 mcg IVPUSH Q5M PRN PRN Reason: Pain Last Admin: 07/04/19 20:52 Dose: 50 mcg Fentanyl (Sublimaze) Confirm Administered Dose 250 mcg .ROUTE .STK-MED ONE Stop: 07/04/19 17:39 Fentanyl (Sublimaze) Confirm Administered Dose 250 mcg .ROUTE .STK-MED ONE Stop: 07/04/19 18:46 Glycopyrrolate (Robinul) Confirm Administered Dose 0.2 mg .ROUTE .STK-MED ONE Stop: 07/04/19 16:04 Hydromorphone HCl (Dilaudid) 1 mg IVPUSH ONETIME ONE Stop: 07/04/19 20:41 Last Admin: 07/04/19 20:59 Dose: 1 mg Sodium Chloride (Normal Saline) Confirm Administered Dose 20 mls @ as directed .ROUTE .STK-MED ONE Stop: 07/04/19 16:20 Cefazolin Sodium/Dextrose 2 gm (/ Premix) 50 mls @ 100 mls/hr IV Q8H [facility] Stop: 07/05/19 08:29 Last Admin: 07/05/19 07:58 Dose: 100 mls/hr Lactated Ringer's (Ringers, Lactated) 1,000 mls @ 100 mls/hr IV ASDIRECTED [facility] Last Admin: 07/06/19 07:01 Dose: 100 mls/hr Lactated Ringer's (Ringers, Lactated) 2,000 mls @ 999 mls/hr IV BOLUS [facility] Last Admin: 07/05/19 05:59 Dose: 999 mls/hr Lactated Ringer's (Ringers, Lactated) 1,000 mls @ 999 mls/hr IV ONETIME ONE Stop: 07/05/19 10:56 Last Admin: 07/05/19 10:06 Dose: 999 mls/hr Ketorolac Tromethamine (Toradol) Confirm Administered Dose 30 mg .ROUTE .STK- MED ONE Stop: 07/04/19 16:04 Lidocaine (Xylocaine-Mpf 2%) Confirm Administered Dose 5 ml .ROUTE .STK-MED ONE Stop: 07/04/19 16:04 Midazolam HCl (Versed 1 Mg/Ml) Confirm Administered Dose 2 mg .ROUTE .STK-MED ONE Stop: 07/04/19 16:04 Ondansetron HCl (Zofran) Confirm Administered Dose 4 mg .ROUTE .STK-MED ONE Stop: 07/04/19 16:04 Phenylephrine HCl (Phenylephrine In Ns 100 Mcg/Ml) Confirm Administered Dose 1 mg .ROUTE .STK-MED ONE Stop: 07/04/19 17:46 Phenylephrine HCl (Giancarlo-Synephrine) Confirm Administered Dose 20 mg .ROUTE .STK- MED ONE Stop: 07/04/19 18:35 Propofol (Diprivan 20 Ml) Confirm Administered Dose 200 mg .ROUTE .STK-MED ONE Stop: 07/04/19 16:04 Rocuronium [place] (Zemuron) Confirm Administered Dose 100 mg .ROUTE .STK-MED ONE Stop: 07/04/19 16:04 Sugammadex Sodium (Bridion) Confirm Administered Dose 200 mg .ROUTE .STK-[employer] ONE Stop: 07/04/19 16:13 - Exam Wound/Incisions: Drainage (AquaCell bandage was changed yesterday morning. Assessed at 1500 with 2 small shadows of drainage. Now, saturated with serosanguaneous drainage. ). No: Erythema Quality Assessment: DVT Prophylaxis (SCDs bilaterally, compression stockings bilaterally, ambulation and ASA 81mg daily) General: Alert, Oriented, Cooperative, No Acute Distress HEENT: Pupils Equal Lungs: Normal Respiratory Effort Cardiovascular: Regular Rate, Other (pp2+) Extremities: No Pedal Edema, Other (Sensation grossly intact to LLE. Moderate amount of swelling left thigh.) Skin: Warm, Dry, Intact Neurological: Normal Speech, Normal Tone Psy/Mental Status: Alert, Normal Affect, Normal Mood Sepsis Event Note - Evaluation Sepsis Screening Result: No Definite Risk - Focused Exam Vital Signs: Vital Signs Temp Pulse Resp BP Pulse Ox 07/08/19 07:15 36.4 C 88 18 110/58 L 99 07/08/19 04:48 37.3 C 81 16 118/58 L 98 07/08/19 00:29 36.1 C 84 16 117/59 L 98 Date Exam was Performed: 07/08/19 Time Exam was Performed: 11:40 - Problem List Review Problem List Initiated/Reviewed/Updated: Yes - My Orders Last 24 Hours: Active Orders 24 hr Category Date Time Status HEMOGLOBIN/HEMATOCRIT,HH [HEME] DAILY Lab 07/09/19 06:00 Ordered Medication Orders Aspirin (Aspirin) 81 mg PO DAILY [facility] Last Admin: 07/08/19 09:18 Dose: 81 mg Admin: 07/07/19 08:16 Dose: 81 mg Admin: 07/06/19 12:46 Dose: 81 mg Celecoxib (Celebrex) 100 mg PO BID [facility] Last Admin: 07/08/19 09:18 Dose: 100 mg Admin: 07/06/19 12:46 Dose: Not Given Admin: 07/05/19 10:00 Dose: Cyclobenzaprine HCl (Flexeril) 10 mg PO TID PRN PRN Reason: muscle spasms Last Admin: 07/08/19 09:18 Dose: 10 mg Admin: 07/07/19 20:24 Dose: 10 mg Admin: 07/07/19 08:26 Dose: 10 mg Admin: 07/06/19 12:47 Dose: 10 mg Diazepam (Valium) 2 mg IVPUSH Q4H PRN PRN Reason: uncontrolled spasms Diphenhydramine HCl (Benadryl) 25 mg IVPUSH Q4H PRN PRN Reason: Itching Docusate Sodium (Colace) 100 mg PO BID [facility] Last Admin: 07/08/19 09:18 Dose: 100 mg Admin: 07/07/19 20:24 Dose: 100 mg Admin: 07/07/19 08:15 Dose: 100 mg Admin: 07/06/19 20:40 Dose: 100 mg Admin: 07/06/19 09:43 Dose: 100 mg Admin: 07/05/19 21:13 Dose: 100 mg Admin: 07/05/19 10:06 Dose: 100 mg Admin: 07/04/19 22:14 Dose: 100 mg Hydromorphone HCl (Dilaudid) 2 mg IVPUSH Q2H PRN PRN Reason: Pain Ondansetron HCl (Zofran) 4 mg IVPUSH Q6H PRN PRN Reason: Nausea/Vomiting Oxycodone/Acetaminophen (Percocet 325-5 Mg) 1 - 2 tab PO Q4H PRN PRN Reason: Pain Last Admin: 07/08/19 07:15 Dose: 2 tab Admin: 07/07/19 20:24 Dose: 1 tab Admin: 07/07/19 13:43 Dose: 2 tab Admin: 07/07/19 09:31 Dose: 2 tab Admin: 07/07/19 05:32 Dose: 1 tab Admin: 07/06/19 23:21 Dose: 1 tab Admin: 07/06/19 19:04 Dose: 1 tab Admin: 07/06/19 13:55 Dose: 2 tab Admin: 07/06/19 09:41 Dose: 2 tab Admin: 07/06/19 05:41 Dose: 2 tab Admin: 07/05/19 21:40 Dose: 2 tab Admin: 07/05/19 17:33 Dose: 2 tab Admin: 07/05/19 11:24 Dose: 2 tab Admin: 07/05/19 07:01 Dose: 2 tab Admin: 07/05/19 02:23 Dose: 2 tab Admin: 07/04/19 22:14 Dose: 1 tab - Assessment Assessment (Free Text/Narrative):: 1) s/p Right Femur cephalumedullary nail 2) acute blood loss anemia 3) hypotension, resolved - Plan Plan (Free Text/Narrative):: Joe continues to show improvement today with ambulation. Tolerating po food/fluids without N/V. Voiding adequately. VSS. BP WNL. Afebrile. AquaCell dressing saturated after PT. New AquaCell applied. Incision approximated with lisa. No surrounding erythema. Neurovascular exam WNL. Joe transferred himself OOB and ambulated to chair with use of walker, independently. DVT prophylaxis : SCDs bilaterally, compression stockings on, ambulation and ASA therapy. Pt feels ready for discharge today. He has been on the phone, in conversation with orthopedic surgeon in [place] who did his Rt TKA Jul 2018, inquiring about accepting his follow up care. Joe is aware that he will need to be seen by orthopedic surgeon 2 weeks from date of surgery for suture removal. He will not need PT referral. Continue ambulation with use of walker. He received 81mg ASA today. ASA will be increased to 325mg. Will write Rx for FWW, as well as complete Patient Referral paperwork if needed.
--- NOTE | 2019-07-08 15:57 | PCM.DCSUM1 ---
Discharge Summary - Hospital Course Free Text/Narrative:: document #[id number] - Discharge Data Discharge Date: 07/08/19 Discharge Disposition: Home, Self-Care 01 Condition: Stable - Referral to Home Health Primary Care Physician: PCP Unobtainable - Patient Summary/Data Operative Procedure(s) Performed: right femur cephallomedullary nail Consults: Consultations 07/04/19 20:33 OT Evaluation and Treatment [CONS] Routine 07/04/19 20:59 Consult to Physician [CONS] Routine 07/06/19 10:18 PT Evaluation and Treatment [CONS] BID - Patient Instructions Diet: Usual Diet as Tolerated Activity: Apply Ice (per [facility] Ice machine) Activity, Other: Weight bearing as tolerates. Ambulation with assistance of walker Driving: Do Not Drive Showering/Bathing: May Shower, No Tub Bathing/Swimming Wound/Incision Care: Keep Operative Site/Wound Site Clean and Dry Notify Provider of: Fever, Increased Pain, Swelling and Redness, Drainage, Nausea and/or Vomiting Other/Special Instructions: Wrap thigh with 6inch MARIBEL bandage for compression. Wear support stockings (on am/off at bedtime) to prevent swelling to lower legs. These are also worn to prevent a blood clot. Cessation of nicotine products (chew). Nicotine delays healing. Colace (over the counter stool softener) twice daily as needed to prevent constipation. Miralax (available over the counter) 1 capful once daily to treat constipation - Discharge Plan *PRESCRIPTION DRUG MONITORING PROGRAM REVIEWED*: Yes *COPY OF PRESCRIPTION DRUG MONITORING REPORT IN PATIENT BONG: Yes Prescriptions/Med Rec: Acetaminophen/oxyCODONE [Percocet 325-5 MG] 1 - 2 tab PO Q6HR PRN #45 tablet PRN Reason: Pain Aspirin 325 mg PO DAILY #60 tab Celecoxib [CeleBREX] 100 mg PO BID #60 cap Cyclobenzaprine [Flexeril] 10 mg PO TID PRN #30 tablet PRN Reason: muscle spasms Docusate Sodium [Colace] 100 mg PO BID PRN #100 cap PRN Reason: Constipation Home Medications: Home Meds Acetaminophen/oxyCODONE [Percocet 325-5 MG] 1 - 2 tab PO Q6HR PRN #45 tablet [Rx] Aspirin 325 mg PO DAILY #60 tab 07/08/19 [Rx] Celecoxib [CeleBREX] 100 mg PO BID #60 cap 07/08/19 [Rx] Cyclobenzaprine [Flexeril] 10 mg PO TID PRN #30 tablet 07/08/19 [Rx] Docusate Sodium [Colace] 100 mg PO BID PRN #100 cap 07/08/19 [Rx] Patient Handouts: Aspirin, ASA chewable tablets, Cyclobenzaprine tablets, Acetaminophen; Oxycodone tablets, Celecoxib capsules, Femoral Shaft Fracture, Docusate capsules - Discharge Summary/Plan Comment DC Time >30 min.: Yes - Patient Data Vitals - Most Recent: Last Vital Signs Temp 35.6 C 07/08/19 12:00 Pulse 105 H 07/08/19 12:00 Resp 20 07/08/19 12:00 BP 122/73 07/08/19 12:00 Pulse Ox 100 07/08/19 12:00 Weight - Most Recent: 90.12 kg I&O - Last 24 hours: Intake & Output 07/08/19 07/08/19 07/08/19 06:59 14:59 22:59 Intake Total 550 Output Total 1200 Balance -650 Lab Results - Last 24 hrs: Laboratory Results - last 24 hr 07/08/19 Range/Units 06:05 Hgb 9.0 L (13.0-17.0) g/dL Hct 26.2 L (38.0-50.0) % Med Orders - Current: Current Medications Aspirin (Aspirin) 81 mg PO DAILY [facility] Last Admin: 07/08/19 09:18 Dose: 81 mg Celecoxib (Celebrex) 100 mg PO BID [facility] Last Admin: 07/08/19 09:18 Dose: 100 mg Cyclobenzaprine HCl (Flexeril) 10 mg PO TID PRN PRN Reason: muscle spasms Last Admin: 07/08/19 09:18 Dose: 10 mg Diazepam (Valium) 2 mg IVPUSH Q4H PRN PRN Reason: uncontrolled spasms Diphenhydramine HCl (Benadryl) 25 mg IVPUSH Q4H PRN PRN Reason: Itching Docusate Sodium (Colace) 100 mg PO BID [facility] Last Admin: 07/08/19 09:18 Dose: 100 mg Hydromorphone HCl (Dilaudid) 2 mg IVPUSH Q2H PRN PRN Reason: Pain Ondansetron HCl (Zofran) 4 mg IVPUSH Q6H PRN PRN Reason: Nausea/Vomiting Oxycodone/Acetaminophen (Percocet 325-5 Mg) 1 - 2 tab PO Q4H PRN PRN Reason: Pain Last Admin: 07/08/19 11:55 Dose: 1 tab Discontinued Medications Aspirin (Aspirin) 325 mg PO DAILY [facility] Last Admin: 07/06/19 12:45 Dose: Not Given Bupivacaine HCl (Sensorcaine-Mpf 0.25%) Confirm Administered Dose 30 ml .ROUTE .STK-MED ONE Stop: 07/04/19 20:11 Cefazolin Sodium (Ancef) Confirm Administered Dose 2 gm .ROUTE .STK-MED ONE Stop: 07/04/19 16:20 Fentanyl (Fentanyl) 75 mcg IVPUSH ONETIME ONE Stop: 07/04/19 14:13 Last Admin: 07/04/19 14:23 Dose: 75 mcg Fentanyl (Sublimaze) Confirm Administered Dose 100 mcg .ROUTE .STK-MED ONE Stop: 07/04/19 14:17 Last Admin: 07/04/19 14:23 Dose: Not Given Fentanyl (Sublimaze) Confirm Administered Dose 250 mcg .ROUTE .STK-MED ONE Stop: 07/04/19 16:04 Fentanyl (Sublimaze) 50 mcg IVPUSH Q5M PRN PRN Reason: Pain Last Admin: 07/04/19 20:52 Dose: 50 mcg Fentanyl (Sublimaze) Confirm Administered Dose 250 mcg .ROUTE .STK-MED ONE Stop: 07/04/19 17:39 Fentanyl (Sublimaze) Confirm Administered Dose 250 mcg .ROUTE .STK-MED ONE Stop: 07/04/19 18:46 Glycopyrrolate (Robinul) Confirm Administered Dose 0.2 mg .ROUTE .STK-MED ONE Stop: 07/04/19 16:04 Hydromorphone HCl (Dilaudid) 1 mg IVPUSH ONETIME ONE Stop: 07/04/19 20:41 Last Admin: 07/04/19 20:59 Dose: 1 mg Sodium Chloride (Normal Saline) Confirm Administered Dose 20 mls @ as directed .ROUTE .STK-MED ONE Stop: 07/04/19 16:20 Cefazolin Sodium/Dextrose 2 gm (/ Premix) 50 mls @ 100 mls/hr IV Q8H [facility] Stop: 07/05/19 08:29 Last Admin: 07/05/19 07:58 Dose: 100 mls/hr Lactated Ringer's (Ringers, Lactated) 1,000 mls @ 100 mls/hr IV ASDIRECTED [facility] Last Admin: 07/06/19 07:01 Dose: 100 mls/hr Lactated Ringer's (Ringers, Lactated) 2,000 mls @ 999 mls/hr IV BOLUS [facility] Last Admin: 07/05/19 05:59 Dose: 999 mls/hr Lactated Ringer's (Ringers, Lactated) 1,000 mls @ 999 mls/hr IV ONETIME ONE Stop: 07/05/19 10:56 Last Admin: 07/05/19 10:06 Dose: 999 mls/hr Ketorolac Tromethamine (Toradol) Confirm Administered Dose 30 mg .ROUTE .STK- MED ONE Stop: 07/04/19 16:04 Lidocaine (Xylocaine-Mpf 2%) Confirm Administered Dose 5 ml .ROUTE .STK-MED ONE Stop: 07/04/19 16:04 Midazolam HCl (Versed 1 Mg/Ml) Confirm Administered Dose 2 mg .ROUTE .STK-MED ONE Stop: 07/04/19 16:04 Ondansetron HCl (Zofran) Confirm Administered Dose 4 mg .ROUTE .STK-MED ONE Stop: 07/04/19 16:04 Phenylephrine HCl (Phenylephrine In Ns 100 Mcg/Ml) Confirm Administered Dose 1 mg .ROUTE .STK-MED ONE Stop: 07/04/19 17:46 Phenylephrine HCl (Giancarlo-Synephrine) Confirm Administered Dose 20 mg .ROUTE .STK- MED ONE Stop: 07/04/19 18:35 Propofol (Diprivan 20 Ml) Confirm Administered Dose 200 mg .ROUTE .STK-MED ONE Stop: 07/04/19 16:04 Rocuronium [place] (Zemuron) Confirm Administered Dose 100 mg .ROUTE .STK-MED ONE Stop: 07/04/19 16:04 Sugammadex Sodium (Bridion) Confirm Administered Dose 200 mg .ROUTE .STK-MED ONE Stop: 07/04/19 16:13
--- NOTE | 2019-07-08 21:57 | DISCH ---
DATE OF DISCHARGE: 07/08/2019 PRIMARY CARE PHYSICIAN: Kim PCP DISCHARGING PHYSICIAN: Dr. Jimbo Agosto. ADMITTING DIAGNOSIS: Right femur fracture status post right femur cephalomedullary nail. OTHER MEDICAL DIAGNOSES: None. DISCHARGE MEDICAL DIAGNOSES: 1. Status post right femur cephalomedullary nail. 2. Acute blood loss anemia. 3. Hypotension. HISTORY: This 54-year-old male sustained a right femur fracture following a fall. He underwent right femur cephalomedullary nail by Dr. Bull Sandoval, July 04, 2019. EBL was 2200. He was transferred to PACU, then to ICU for postoperative care which included hospitalist consultation for management of the acute blood loss necessitating packed red blood cell transfusion and FFP and hypotension management. Postoperatively, day 1July 05, hemoglobin was 9.4. Postop day 2, July 06, collaborative care with hospitalist team, he was ready to be transferred out of ICU as hemoglobin stable and blood pressure improved. He was seen by Physical Therapy that day. Antibiotic coverage included 2 g of Ancef every 8 hours for 24 hours. Pain was controlled with Percocet 5/325, 1 to 2 tablets as needed. He was able to extend his need of use resulting in manageable pain. As previously noted, physical therapy was initiated postop day 2 after transfer out of ICU. He continued to progress well with therapy, nursing staff, progress to standby assist with wheeled walker. Last 2 days of the hospital course, vital signs were stable, particularly his blood pressure and hospitalist management was ceased. He remained afebrile during hospital stay. Hemoglobin on day of discharge 9.0, he was asymptomatic. Incision is well approximated with lisa. Surgical incisions were removed postop day 3 and large Aquacel dressing was applied. This necessitated changing the following day for moderate amount of serosanguineous drainage after increased physical therapy. Diligent use of ice per [facility] therapy for pain management and to minimize swelling. VTE prophylaxis included SCDs bilaterally, compression stockings bilaterally (knee- high), aspirin therapy which was started postop day 2 (previously held due to low hemoglobin) and early ambulation. He felt ready to be discharged postop day 4 as he was more comfortable with transfers and ambulation. His plan is to return to [place], [place] for his recovery. His return home will include a flight. He was advised to wear compression stockings during his flight with the need to walk every 2 hours to prevent DVT. Upon discharge, aspirin therapy was increased from 81 mg to 325 mg. DISCHARGE MEDICATIONS: 1. Percocet 5/325 mg, 1 to 2 tabs p.o. q.6 hours p.r.n. 2. Aspirin 325 mg daily. 3. Celebrex 100 mg b.i.d. 4. Flexeril 10 mg p.o. t.i.d. p.r.n., acute muscle spasms. Additionally discussed, the patient has an adverse effect of decreased mobility and narcotic use. Provided suggestions for Colace 100 mg b.i.d. p.r.n. as needed and MiraLAX 17 g 1 capsule once daily as needed. Educated on signs and symptoms of DVT to be observant for with his upcoming travel. Prior to his discharge, he was placing a phone call to orthopedic surgeon who performed right total knee arthroplasty in July 2018 in [place] for continued care and management. He is aware he will need to be seen by an orthopedic provider 2 weeks from date of surgery for removal of his lisa. Was not deemed he needed formal physical therapy and to continue to progress his ambulation as tolerated. If he has any questions, he was directed to contact orthopedic clinic. ELIEZER / PATSY /[id number]
== END 2019-07-08 18:26 | disposition home or self-care (01) | DRG 481 ==
LOC: MW.ED 12:45 → MW.MS 15:57 → MW.ICU 21:01 → MW.MS 07-06 16:40
PROVIDERS: ADMIT Orthopaedic Surgery; ATTEND Orthopaedic Surgery
PROC: 0QS634Z Reposition Right Upper Femur with Internal Fixation Device, Percutaneous Approach (ICD-10-PCS; principal; 2019-07-04)
PROC: 30233N1 Transfusion of Nonautologous Red Blood Cells into Peripheral Vein, Percutaneous Approach (ICD-10-PCS; 2019-07-05)
PROC: 30233K1 Transfusion of Nonautologous Frozen Plasma into Peripheral Vein, Percutaneous Approach (ICD-10-PCS; 2019-07-05)
DX: S72.21XA Displaced subtrochanteric fracture of right femur, initial encounter for closed fracture (principal); D62 Acute posthemorrhagic anemia; I95.9 Hypotension, unspecified; R01.0 Benign and innocent cardiac murmurs; W00.0XXA Fall on same level due to ice and snow, initial encounter
CPT/HCPCS: 36415; 36430; 51701; 51798; 73502-26-RT; 73502-RT; 73552-26-LT; 73552-RT; 80048; 80053; 85014; 85018; 85025; 85610; 85730; 86850; 86900; 86901; 86920; 86921; 86922; 96374; 97110-GP; 97116-GP; 97162-GP; 97530-GP; 99284; 99285-25; A9270-GY; C1713; C1769; J0690; J1170; J1885; J2001; J2250; J2370; J2405; J2704; J3010; J3490; J7120; P9016; P9017